=== PATIENT | male | born 1940 | race Caucasian/White ===

== ENCOUNTER 2020-10-20 09:21 | Outpatient (REF) | payer MEDICARE, SELFPAY ==
--- NOTE | 2020-10-20 09:24 | EMG_ITS ---
Right median and ulnar motor and sensory studies were performed. Right radial sensory studies were performed and paraspinal muscles were tested. IMPRESSION: 1. Dwug-[id number] right median neuropathy across carpal tunnel. 2. Bsim-hn-krytsgxt right ulnar neuropathy across cubital tunnel. 3. Chronic right multilevel cervical radiculopathy. MD DARLEEN Goff/SELENE / [id number]
== END 2020-10-20 09:22 | disposition home or self-care (01) ==
LOC: HO.NEURO 09:21
PROVIDERS: PCP Internal Medicine; Visit Provider Internal Medicine
DX: G56.01 Carpal tunnel syndrome, right upper limb (principal)
CPT/HCPCS: 95886; 95909

== ENCOUNTER → 2020-12-14 07:43 | Outpatient (BNVA) | payer MEDICARE, SELFPAY | PROVIDERS: Visit Provider Orthopaedic Surgery | DX: G56.01 Carpal tunnel syndrome, right upper limb (principal) | CPT/HCPCS: 99202 ==

== ENCOUNTER 2021-03-23 10:22 | Outpatient (REF) | payer MEDICARE, SELFPAY ==
[2021-03-23 11:08] LABS: Hematocrit 43.4 % (42.0-52.0); Hemoglobin 14.1 g/dl (14.0-18.0); Mean Corpuscular HGB Conc 32.5 g/dl (31.0-36.0); Mean Corpuscular Hemoglobin 29.9 pg (27.0-33.0); Mean Corpuscular Volume 92.1 fL (80.0-98.0); Mean Platelet Volume 9.7 fL (9.4-12.4); Platelet Count 326 X10*3/uL (160-400); Red Blood Count 4.71 X10*6/uL (4.60-5.80); Red Cell Distribution Width 13.2 % (11.0-16.0); White Blood Count 8.4 X10*3/uL (4.8-10.8)
[2021-03-23 11:41] LABS: Alanine Aminotransferase 15 U/L (0-40); Albumin Level 4.6 g/dL (3.5-5.0); Alkaline Phosphatase 82 U/L (39-117); Anion Gap 12 (12-20); Aspartate Amino Transferase 18 U/L (5-37); Bilirubin Total 2.9 mg/dL (0.0-1.0); Blood Urea Nitrogen 14 mg/dL (9-16); Calcium 9.7 mg/dL (8.4-10.2); Carbon Dioxide 27 mmol/L (22-29); Chloride 108 mmol/L (96-108); Cholesterol 174 mg/dL; Estimated Glomerular Filt Rate > 60; Glucose Fasting 91 mg/dL (60-99); HDL Cholesterol 44 mg/dL; LDL Cholesterol Calculated 99 mg/dl; Sodium 142 mmol/L (135-145); Total Protein 7.5 g/dL (6.5-8.0); Triglycerides 156 mg/dL
== END 2021-03-23 10:23 | disposition home or self-care (01) ==
LOC: HO.HMGCLDS 10:22
PROVIDERS: PCP Internal Medicine; Visit Provider Internal Medicine
DX: E78.5 Hyperlipidemia, unspecified (principal); I48.91 Unspecified atrial fibrillation
CPT/HCPCS: 36415; 80053; 80061; 85027

== ENCOUNTER → 2021-08-02 12:03 | Outpatient (RCR) | payer MEDICARE, SELFPAY ==
--- NOTE | 2020-01-07 15:45 | MHC.PT.EP ---
[facility] [place] Office [place] Office [place] Office [address] Dc Real [address] [phone] F: [phone] F: [phone] F: [phone] F: [phone] Physical Therapy Plan of Care Date of Evaluation: 01/07/20 Date of Surgery: Diagnosis: B sciatica. Assessment: Pt is a 79 y/o German speaking male referred to PT for eval and treat of B sciatica. His functional limitations include decreased tolerance for lifting and squatting activities, as well as getting OOB and turning in bed, initiating ambulation, performing transfers and transitional movements including standing up from sitting secondary to decreased trunk ROM, increased LE and lumbar tissue tension, decreased core and LE strength, decreased posture and gait abnormality. Pt is deemed an appropriate candidate to receive skilled PT services to address his physical impairments to improve his functional ability. Frequency and Duration: The patient will be seen 2x/wk x 4 weeks. Short Term Goals: In 1 week: initiate HEP with evidence of compliance. In 3 weeks: Pt will report > 50 % reduction in LE Sx severity and occurrence. Clinical Field Specialist Goals: In 4 weeks: I with HEP. In 4 weeks: Pt will report no pain with sit<> stand transfers. in 4 weeks: Pt's subjective LEFS questionnaire will improve to > 46/80, initial 38/80. Treatment Plan: Modalities to reduce pain, spasms and effusion. Manual therapy to restore motion and function. Therapeutic exercise to improve strength and flexibility. Neuromuscular re-education for posture and balance. Therapeutic activities to return to functional activities of daily living. Please sign and return to therapist. Thank you for your referral.
--- NOTE | 2020-02-22 13:27 | MHC.PT.DC ---
[facility] [place] [facility] [place] Office [place] Office [address] Dc Real [address] [phone] F: [phone] F: [phone] F: [phone] F: [phone] Physical Therapy Discharge Report Diagnosis: B sciatica. Date of Surgery: NA Date of Evaluation: 01/07/20 Date of Discharge: 02/22/20 Treatments to Date: 13 Cancellations to Date: 0 No Shows to Date: 0 Discharge Status: Achieved Goals Improved Function Independent with HEP Discharge Summary: Dale has been an active participant in his therapy in the clinic with fair home program compliance. He has met his therapeutic goals, is I with a home program and is in agreement with Dc at this time. Electronically signed by: Kemar Zamudio PT. Please sign and return to therapist. Thank you for your referral.
== END | disposition home or self-care (01) ==
LOC: HO.PTCHIC 01-07 12:51
PROVIDERS: PCP Internal Medicine; Visit Provider Internal Medicine
DX: M54.31 Sciatica, right side (principal); M54.32 Sciatica, left side
CPT/HCPCS: 97014; 97110; 97140; 97161

== ENCOUNTER 2022-03-13 09:24 | Outpatient (REF) | payer MEDICARE, SELFPAY ==
[2022-03-13 11:28] LABS: MANUAL DIFF FLAG NO
[2022-03-13 11:37] LABS: Basophils Absolute Auto 0.1 X10*3/uL (0.0-0.2); Eosinophils Absolute Auto 0.1 X10*3/uL (0.0-0.4); Eosinophils Percent Auto 1.9 % (0-4); Hematocrit 40.5 % (42.0-52.0); Hemoglobin 13.1 g/dl (14.0-18.0); Imm Gran Abs Auto 0.02 X10*3/uL (0.00-0.03); Imm Gran Pct Auto 0.3 % (0.0-0.4); Lymphocytes Absolute Auto 2.4 X10*3/uL (1.2-4.9); Lymphocytes Percent Auto 40.1 % (20-40); Mean Corpuscular HGB Conc 32.3 g/dl (31.0-36.0); Mean Corpuscular Hemoglobin 29.7 pg (27.0-33.0); Mean Corpuscular Volume 91.8 fL (80.0-98.0); Monocytes Absolute Auto 0.5 X10*3/uL (0.1-1.2); Monocytes Percent Auto 8.1 % (2-11); Neutrophils Absolute Auto 2.9 x10*3/uL (2.0-8.3); Neutrophils Percent Auto 48.6 % (45-73); Platelet Count 310 X10*3/uL (160-400); Red Blood Count 4.41 X10*6/uL (4.60-5.80); Red Cell Distribution Width 12.9 % (11.0-16.0); White Blood Count 5.9 X10*3/uL (4.8-10.8)
[2022-03-13 13:21] LABS: Digoxin < 0.2 ng/mL (0.8-2.0)
[2022-03-13 13:56] LABS: Alanine Aminotransferase 12 U/L (0-40); Albumin Level 4.4 g/dL (3.5-5.0); Alkaline Phosphatase 80 U/L (39-117); Anion Gap 12 (12-20); Aspartate Amino Transferase 20 U/L (5-37); Bilirubin Total 1.8 mg/dL (0.0-1.0); Blood Urea Nitrogen 14 mg/dL (9-16); Calcium 9.1 mg/dL (8.4-10.2); Carbon Dioxide 24 mmol/L (22-29); Chloride 113 mmol/L (96-108); Cholesterol 155 mg/dL; Estimated Glomerular Filt Rate > 60; Glucose Fasting 89 mg/dL (60-99); HDL Cholesterol 41 mg/dL; LDL Cholesterol Calculated 92 mg/dl; Potassium 4.1 mmol/L (3.3-5.1); Sodium 145 mmol/L (135-145); Total Protein 6.7 g/dL (6.5-8.0); Triglycerides 114 mg/dL
== END 2022-03-13 09:25 | disposition home or self-care (01) ==
LOC: HO.HMGCLDS 09:24
PROVIDERS: PCP Internal Medicine; Visit Provider Internal Medicine
DX: E78.5 Hyperlipidemia, unspecified (principal); I48.91 Unspecified atrial fibrillation
CPT/HCPCS: 36415; 80053; 80061; 80162; 85025

== ENCOUNTER → 2022-05-04 14:19 | Outpatient (REF) | payer MEDICARE, SELFPAY ==
--- NOTE | 2022-05-04 14:26 | HM_ITS ---
Conclusion: 1. Patient was monitored for total period of 1 day 2. Baseline was atrial fibrillation with average heart of 67 beats per minute with good rate control 3. No significant pauses greater than 3 seconds noted 4. Total of 248 PVCs accounting for 0.25% total beats account for occasional PVCs 5. One 3 beat nati of wide complex suggestive nonsustained VT at 129 beats per minute 6. No patient reported symptoms MTDD
--- NOTE | 2022-05-04 14:26 | CA_ITS ---
Transthoracic Echocardiogram Patient (Last, First, Middle): Dale Wiley, Gender: Male Date of : 1940 Age: 82 Procedure Date: 05/04/2022 Procedure Type: Transthoracic Echocardiogram Location: OP Height: 172.72 cm Weight: 102.06 kg BSA: 2.15 m2 Heart Rate: 75 bpm BP: 130 / 80 mmHg Stick Inserter: ERLIN Barton MD: Darleen Weaver MD Golf Club Manager: Grady Khan MD Symptoms: I48.91 - Unspecified atrial fibrillation Study Quality: Technically Difficult ECG Rhythm: Atrial Fibrillation Conclusions: - 1. Normal LV systolic function 2. At least moderate biatrial enlargement 3. Trivial aortic regurgitation 4. Normal RV systolic pressure 5. No gross pericardial effusion Findings Left Ventricle Normal left ventricular size and systolic function. There is mildly increased left ventricular wall thickness. The visually estimated ejection fraction is between 60-65%. Elevated left ventricular end diastolic pressure. E/E prime ratio is <8, consistent with normal filling pressures. Right Ventricle Normal right ventricular cavity size and systolic function. Atria Moderate biatrial enlargement. There is no evidence of interatrial shunt. Aortic Valve There is mild calcification of the aortic valve. There is no aortic valve stenosis. There is trace (trivial) aortic valve regurgitation. Mitral Valve There is mild anterior and posterior mitral leaflet thickening. There is trace mitral valve regurgitation. There is no mitral valve stenosis. Pulmonic Valve The pulmonic valve was not well visualized. Tricuspid Valve Likely normal tricuspid valve structure and function. Tricuspid regurgitation envelope is inadequate for calculation of right ventricular systolic pressure. Normal right atrial pressure. Great Vessels The pulmonary artery was not well visualized. There is no dilatation of the ascending aorta. Venous The inferior vena cava is normal in size and collapses greater than 50% with inspiration. Pericardium/Pleural There is no evidence of pericardial effusion. Prior Study Comparison No prior study available for comparison. Measurements 2D Linear Measurements IVSd: 1.28 0.6-0.9/0.6-1.0 cm LVIDd: 4.28 3.9-5.3/4.2-5.9 cm LVIDd Index: 1.99 2.4-3.2/2.2-3.1 cm/m2 LVIDs: 2.77 2.0-3.6 cm LVPWd: 1.16 0.7-1.1 cm LA Diam: 4.80 2.7-3.8/3.0-4.0 cm LAIDs Index: 2.23 1.5-2.3 cm/m2 LV Mass: 234.06 67-162/88-224 g LV Mass Index: 108.87 43-95/49-115 g/m2 LVOT Diam: 2.30 3.0+(-)1.3 cm 2D Systolic Function EF 4C: 57.80 >55% EF 2C: 68.30 >55% EF BiP: 63.40 >55% Mitral Valve MV Pk E: 0.83 MV PK A: 0.49 MV Decel Time: 190.00 E/A: 1.70 E'Lateral: 12.90 E'Medial: 12.70 E/E' Med: 6.50 E/E' Lat: 6.40 PHT: 56.00 MVA PHT: 3.93 Decel Nelson: 4.37 Aortic Valve AoV Pk Omar: 1.15 AoV Mn Omar: 0.79 AoV VTI: 0.22 AoV Pk Grad: 5.00 Aov Mn Grad: 3.00 ROMMEL Cont.VTI: 3.34 LVOT LVOT Pk Omar: 0.93 LVOT Mn Omar: 0.63 LVOT VTI: 0.17 LVOT Pk Grad: 3.00 LVOT Mn Grad: 2.00 LVOT Diam: 2.30 LVOT Area: 4.15 Diastolic Function MV Pk E: 0.83 MV Pk A: 0.49 E/A: 1.70 E'Medial: 12.70 E/E' Med: 6.50 E' Laterial: 12.90 E/E' Lat: 6.40 Right Ventricle TAPSE (mm): 21.40 TVS' Omar: 11.70 Tricuspid Valve TR Pk Omar: 2.58 TR Pk Grad: 27.00 Great Vessels Aorta Sinus of Valsalva: 3.40 2.0-3.5 cm Ao Asc: 3.50 2.1-3.4 cm Pulmonary Valve PV Pk Omar: 0.91 Peak PV Grad: 3.00 Updated in Other Vendor System with Status of Final Grady Khan MD electronically signed on 05/05/2022 2:55:25 PM with status of Final
== END ==
LOC: HO.CARD 14:19
PROVIDERS: PCP Internal Medicine; Visit Provider Internal Medicine
DX: I48.91 Unspecified atrial fibrillation (principal)
CPT/HCPCS: 93225; 93306

== ENCOUNTER → 2022-05-24 08:23 | Outpatient (BNVA) | payer MEDICARE, SELFPAY | PROVIDERS: PCP Internal Medicine; Referring Provider Internal Medicine; Visit Provider Internal Medicine | DX: I48.19 Other persistent atrial fibrillation (principal) | CPT/HCPCS: 93005; 99202 ==

== ENCOUNTER 2022-09-14 10:50 | Outpatient (REF) | payer MEDICARE, SELFPAY ==
[2022-09-14 13:46] LABS: MANUAL DIFF FLAG NO
[2022-09-14 13:53] LABS: Basophils Absolute Auto 0.1 X10*3/uL (0.0-0.2); Basophils Percent Auto 0.9 % (0-2); Eosinophils Absolute Auto 0.1 X10*3/uL (0.0-0.4); Eosinophils Percent Auto 1.6 % (0-4); Hematocrit 41.9 % (42.0-52.0); Hemoglobin 13.6 g/dl (14.0-18.0); Imm Gran Abs Auto 0.02 X10*3/uL (0.00-0.03); Imm Gran Pct Auto 0.3 % (0.0-0.4); Lymphocytes Absolute Auto 2.6 X10*3/uL (1.2-4.9); Lymphocytes Percent Auto 38.4 % (20-40); Mean Corpuscular HGB Conc 32.5 g/dl (31.0-36.0); Mean Corpuscular Hemoglobin 29.8 pg (27.0-33.0); Mean Corpuscular Volume 91.9 fL (80.0-98.0); Mean Platelet Volume 10.4 fL (9.4-12.4); Monocytes Absolute Auto 0.7 X10*3/uL (0.1-1.2); Neutrophils Absolute Auto 3.3 x10*3/uL (2.0-8.3); Neutrophils Percent Auto 48.8 % (45-73); Platelet Count 302 X10*3/uL (160-400); Red Blood Count 4.56 X10*6/uL (4.60-5.80); Red Cell Distribution Width 13.2 % (11.0-16.0); White Blood Count 6.7 X10*3/uL (4.8-10.8)
[2022-09-14 14:29] LABS: Alanine Aminotransferase 16 U/L (0-40); Albumin Level 4.3 g/dL (3.5-5.0); Alkaline Phosphatase 77 U/L (39-117); Anion Gap 11 (12-20); Aspartate Amino Transferase 20 U/L (5-37); Bilirubin Total 2.1 mg/dL (0.0-1.0); Blood Urea Nitrogen 16 mg/dL (9-16); Calcium 10.1 mg/dL (8.4-10.2); Carbon Dioxide 26 mmol/L (22-29); Chloride 112 mmol/L (96-108); Estimated Glomerular Filt Rate > 60; Glucose Random 94 mg/dL (60-115); Iron 100 mcg/dL (45-160); Percent Iron Saturation 37 % (15-50); Potassium 4.4 mmol/L (3.3-5.1); Sodium 145 mmol/L (135-145); Total Iron Binding Capacity 271 mcg/dL (228-428); Total Protein 7.1 g/dL (6.5-8.0); Unsaturated Iron Binding 171 ug/dL
[2022-09-14 14:58] LABS: Folate 13.1 ng/mL (> or = 4.0); Vitamin B12 272 pg/mL (200-900)
== END 2022-09-14 10:51 | disposition home or self-care (01) ==
LOC: HO.HMGCLDS 10:50
PROVIDERS: PCP Internal Medicine; Visit Provider Internal Medicine
DX: I48.19 Other persistent atrial fibrillation (principal); D64.9 Anemia, unspecified; E78.5 Hyperlipidemia, unspecified
CPT/HCPCS: 36415; 80053; 82607; 82746; 83540; 85025

== ENCOUNTER 2022-12-10 09:01 | Outpatient (AMB) | payer MEDICARE, SELFPAY ==
--- NOTE | 2022-12-10 09:25 | MHC.OFFVIS ---
Intake Vital Signs 12/10/22 09:26 Height 5 ft 10 in Weight 231 lb 7.766 oz BMI 33.2 BP 110/80 Blood Pressure Location Lt brachial Position Sitting Pulse 92 Intake Visit Reasons: 6 mth fup Intake Note: 6 month follow up Table Saw Operator Required: Yes Table Saw Operator Language: Bangladeshi Table Saw Operator Name: Linda [id number] Accompanied by: Self / Same As Patient Allergies No Known Allergies Allergy (Verified 12/10/22 09:28) Medication List - Last Reconciled 12/10/22 by Angel Vilchis MD atorvastatin 20 mg PO DAILY dabigatran etexilate 150 mg PO BID digoxin 125 mcg PO DAILY HPI HPI Comments History of Present Illness Details Dale returns for follow-up. He used to go to Cardiology in [place] but then switched over to our care due to some insurance issues. Polyp speaking only. Discussed using educational sign language interpreter. Overall, he is doing okay. No specific concerns like angina or shortness of breath or in fact anything cardiac sounding. No previous history of coronary disease myocardial infarction. 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 Mother No problems noted. Social History Housing: House Alcohol intake: never Patient Tobacco Use Status: Never used Tobacco e-Cigarette/Vaping Use: Never Used Current occupational status: retired Current occupation: rt hand Cognitive needs: No Hearing needs: No Vision needs: No Review of Systems Const Denies weakness ENT Denies dizziness Card Denies chest pain, Denies chest pain with activity, Denies syncope, Denies rapid heart rate, Denies pedal edema, Denies edema, Denies leg edema, Denies lightheadedness, Denies palpitations, Denies dyspnea, Denies dyspnea on exertion and Denies orthopnea Resp Denies cough, Denies dyspnea and Denies dyspnea on exertion GI Denies hematochezia and Denies change in stool character Musc Denies abnormal gait, Denies muscle cramps, Denies muscle weakness, Denies numbness, Denies radiating pain into limb and Denies tingling Neuro Denies abnormal gait, Denies dizziness, Denies syncope, Denies numbness, Denies tingling and Denies weakness Endo Denies palpitations Physical Exam Vital Signs: Last Vital Signs Pulse 92 12/10/22 09:26 BP 110/80 12/10/22 09:26 BMI result Body Mass Index 33.2 Const General: comfortable and no acute distress Orientation/consciousness: patient oriented x3 HEENT Other: Unremarkable Head: Yes normal to inspection Neck Neck: Yes normal visual inspection Chest Chest palpation & inspection: normal inspection of the chest Resp Auscultation: clear to auscultation bilaterally Cardio Palpation: normal PMI Heart sounds: S1 normal heart sound present, S2 normal heart sound present, no gallops, no murmurs and no rubs GI Palpation (GI): Soft to palpation Back/Spine/Pelvis Other: unremarkable Skin General skin exam: no rashes or lesions noted Neuro General: patient oriented x3 Extrem General: Yes normal to inspection Psych Mental Status: mental status grossly normal Assessment & Plan Assessment & Plan (1) Persistent atrial fibrillation: Code(s): I48.19 - Other persistent atrial fibrillation Plan Cardiac studies reviewed. Echocardiogram with LVEF of 60-65%; no significant valvular issues. Moderate biatrial enlargement. Holter monitor shows underlying atrial fibrillation with an average rate of 67/Min. Rare PVCs. Overall, adequate rate control. Stress test done in [place] in 2014 reported to have normal perfusion. Overall, long-standing atrial fibrillation. He is maintained only on digoxin and it has been this way probably due to low blood pressure issues. No changes. Continue anticoagulation. Follow-up in 1 year. In the interim, to call with concerns. Discussed using Bangladeshi educational sign language interpreter. Medications: Changed From dabigatran etexilate 150 mg PO BID 180 caps 3RF I48.91 - Unspecified atrial fibrillation To dabigatran etexilate 150 mg PO BID I48.91 - Unspecified atrial fibrillation Coding Level of Care Code Est Pt Level 3 (16287) Diagnoses Persistent atrial fibrillation I48.19
[2022-12-10 09:26] VITALS: BP 110/80; PULSE 92; BMI 33.2
== END 2022-12-10 09:45 | disposition home or self-care (01) ==
PROVIDERS: PCP Internal Medicine; Referring Provider Internal Medicine; Visit Provider Internal Medicine
DX: I48.19 Other persistent atrial fibrillation (principal)
CPT/HCPCS: 99213

== ENCOUNTER → 2022-12-10 09:01 | Outpatient (BNVA) | payer MEDICARE, SELFPAY | PROVIDERS: PCP Internal Medicine; Referring Provider Internal Medicine; Visit Provider Internal Medicine | DX: I48.19 Other persistent atrial fibrillation (principal) | CPT/HCPCS: 99212 ==

== ENCOUNTER 2023-04-03 09:09 | Outpatient (REF) | payer MEDICARE, SELFPAY ==
[2023-04-03 11:28] LABS: MANUAL DIFF FLAG NO
[2023-04-03 11:47] LABS: Basophils Absolute Auto 0.1 X10*3/uL (0.0-0.2); Basophils Percent Auto 0.7 % (0-2); Eosinophils Absolute Auto 0.1 X10*3/uL (0.0-0.4); Eosinophils Percent Auto 1.9 % (0-4); Hematocrit 40.4 % (42.0-52.0); Hemoglobin 13.3 g/dl (14.0-18.0); Imm Gran Abs Auto 0.01 X10*3/uL (0.00-0.03); Imm Gran Pct Auto 0.1 % (0.0-0.4); Lymphocytes Absolute Auto 2.8 X10*3/uL (1.2-4.9); Lymphocytes Percent Auto 40.7 % (20-40); Mean Corpuscular HGB Conc 32.9 g/dl (31.0-36.0); Mean Corpuscular Hemoglobin 29.8 pg (27.0-33.0); Mean Corpuscular Volume 90.6 fL (80.0-98.0); Mean Platelet Volume 10.2 fL (9.4-12.4); Monocytes Absolute Auto 0.7 X10*3/uL (0.1-1.2); Monocytes Percent Auto 9.3 % (2-11); Neutrophils Absolute Auto 3.3 x10*3/uL (2.0-8.3); Neutrophils Percent Auto 47.3 % (45-73); Platelet Count 292 X10*3/uL (160-400); Red Blood Count 4.46 X10*6/uL (4.60-5.80); Red Cell Distribution Width 13.5 % (11.0-16.0)
[2023-04-03 12:08] LABS: Alanine Aminotransferase 14 U/L (0-40); Albumin Level 4.3 g/dL (3.5-5.0); Alkaline Phosphatase 76 U/L (39-117); Anion Gap 13 (12-20); Aspartate Amino Transferase 19 U/L (5-37); Bilirubin Total 1.6 mg/dL (0.0-1.0); Blood Urea Nitrogen 11 mg/dL (9-16); Calcium 9.2 mg/dL (8.4-10.2); Carbon Dioxide 23 mmol/L (22-29); Chloride 113 mmol/L (96-108); Cholesterol 139 mg/dL (<200); Estimated Glomerular Filt Rate > 60; Glucose Fasting 92 mg/dL (60-99); HDL Cholesterol 47 mg/dL (>40); LDL Cholesterol Calculated 70 mg/dL (<100); Potassium 4.2 mmol/L (3.3-5.1); Sodium 145 mmol/L (135-145); Triglycerides 112 mg/dL (<150)
== END 2023-04-03 09:10 | disposition home or self-care (01) ==
LOC: HO.HMGCLDS 09:09
PROVIDERS: PCP Internal Medicine; Visit Provider Internal Medicine
DX: D64.9 Anemia, unspecified (principal); I48.91 Unspecified atrial fibrillation
CPT/HCPCS: 36415; 80053; 80061; 85025

== ENCOUNTER 2023-04-04 11:07 | Outpatient (AMB) | payer MEDICARE, SELFPAY ==
[2023-04-04 11:13] VITALS: BP 114/74; PULSE 95; O2SAT 98; BMI 33.9
--- NOTE | 2023-04-04 11:13 | A.OFFPC_ITS ---
Vital Signs 04/04/23 11:13 Height 5 ft 10 in Weight 236 lb BMI 33.9 BP 114/74 Blood Pressure Location Rt brachial Position Sitting Pulse 95 Pulse Source Pulse Oximeter Pulse Oximetry (%) 98 Oxygen Delivery Method Room Air Intake Visit Reasons: 6 month Follow up A-Fib Intake Note: Pt is here today for 6 months follow up visit on Afib. Allergies No Known Allergies Allergy (Verified 04/04/23 11:31) Medication List - Last Reconciled 04/04/23 by Darleen Weaver MD atorvastatin 20 mg PO DAILY dabigatran etexilate 150 mg PO BID 90 days digoxin 125 mcg PO DAILY Tobacco use date assessed: 04/04/23 Fall risk assessment: No Falls in past year Last assessed Fall Risk: 04/04/23 Dental Screening Dental Screen Date: 04/04/23 Did you have a dental visit in the last 12 months?: Yes Did you have a dental problem in the last 6 months where you did not have access to dental care?: No Was dental information given to patient?: Patient has dentist HPI 6 month Follow up A-Fib HPI Details Patient presents for the follow-up of AFib and hyperlipidemia stable on current medications. Patient denies chest pain shortness for breath palpitations. 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 Mother No problems noted. Social History Housing: House Alcohol intake: never Patient Tobacco Use Status: Never used Tobacco e-Cigarette/Vaping Use: Never Used Current occupational status: retired Current occupation: rt hand Cognitive needs: No Hearing needs: No Vision needs: No Questionnaire PHQ-9 Over the last 2 weeks, how often have you been bothered by any of the following problems? 1. Little interest or pleasure in doing things: not at all 2. Feeling down, depressed, or hopeless: not at all 3. Trouble falling or staying asleep, or sleeping too much: not at all 4. Feeling tired or having little energy: not at all 5. Poor appetite or overeating: not at all 6. Feeling bad about yourself - or that you are a failure or have let yourself or your family down: not at all 7. Trouble concentrating on things, such as reading the newspaper or watching television: not at all 8. Moving or speaking so slowly that other people could have noticed. Or the opposite - being so fidgety or restless that you have been moving around a lot more than usual: not at all 9. Thoughts that you would be better off or of hurting yourself in some way: not at all Total score: 0 Depression Screening Interpretation: Negative Depression Screening Done: Yes Source: Developed by Drs. Daniel Paul, Kavya Macias, Justin Rocha and colleagues, with an educational gladis from [employer]. Thrive Questionnaire Date Thrive assessed: 04/04/23 I am a: Patient What is your living situation today?: I have a steady place to live Within the past 12 months, did the food you bought not last and you didn't have the money to get more?: Never true Within the past 12 months, did you worry whether your food would run out before you got money to buy more?: Never true Do you have trouble paying for medicines?: No Do you have trouble getting transportation to medical appointments?: No Do you have trouble paying your heating and electricity bill?: No Do you have trouble taking care of your child, family member or friend?: No Do you have trouble with day-to-day activities such as bathing, preparing meals, shopping, managing finances, etc.?: No Are you currently unemployed and looking for a job?: No Are you interested in more education?: No Please select the resources that you would like help with: None Currently or been in a relationship where the following occur: no concerns reported AUDIT C Alcohol Use Questionnaire (AUDIT-C) 1. How often do you have a drink containing alcohol?: Never 3. How often do you have six or more drinks on one occasion?: Never Total Score: 0 ANN-MARIE-7 AMB Questionnaire ANN-MARIE-7 Date ANN-MARIE - 7 assessed: 04/04/23 Feeling nervous, anxious, or on edge: 0 = Not at all Not being able to stop or control worryin = Not at all Worrying too much about different things: 0 = Not at all Trouble relaxin = Not at all Being so restless that it is hard to sit still: 0 = Not at all Becoming easily annoyed or irritable: 0 = Not at all Feeling afraid as if something awful might happen: 0 = Not at all Total ANN-MARIE-7 score (0-4 normal; 5-9 mild; 10-14 moderate; 15-21 severe): 0 Source: Developed by Drs. Daniel Paul, Kavya Macias, Justin Rocha and colleagues, with an educational gladis from [employer]. Review of Systems Const All systems reviewed & are unremarkable except as noted in HPI and below Reports no additional complaints Eyes Reports no additional complaints Card Reports no additional complaints Resp Reports no additional complaints GI Reports no additional complaints Physical exam (Primary Care) Vital Signs: Last Vital Signs Pulse 95 04/04/23 11:13 BP 114/74 04/04/23 11:13 Pulse Ox 98 04/04/23 11:13 Oxygen Delivery Method Room Air 04/04/23 11:13 BMI result Body Mass Index 33.9 Tobacco/Smoking Status: Tobacco use Status Tobacco use date assessed 04/04/23 04/04/23 11:33 Patient Tobacco Use Status Never used Tobacco 04/04/23 11:33 e-Cigarette/Vaping Use Never Used 04/04/23 11:13 PHQ-9: PHQ-9 Score PHQ-9: Total score 0 04/04/23 11:38 Depression Screening Interpretation: Negative Thrive Assessment: Date of Thrive Assessment Date Thrive assessed 04/04/23 04/04/23 11:38 Currently or been in a relationship where the following occur: no concerns reported Const General: no acute distress HENMT Face and sinus: Yes normal facial exam Neck Neck: Yes supple Resp Effort & Inspection: normal respiratory effort Auscultation: clear to auscultation bilaterally Cardio Rhythm: regular rhythm Heart sounds: S1 normal heart sound present and S2 normal heart sound present GI Inspection: Yes normal to inspection Palpation (GI): Soft to palpation Assessment and Plan Assessment & Plan (1) Persistent atrial fibrillation: Code(s): I48.19 - Other persistent atrial fibrillation Plan: Continue digoxin and Pradaxa follow-up with cardiology (2) Hyperlipidemia: Code(s): E78.5 - Hyperlipidemia, unspecified Plan: Continue statin Medications: Refilled dabigatran etexilate 150 mg PO BID 90 days 180 caps 3RF I48.91 - Unspecified atrial fibrillation digoxin 125 mcg PO DAILY 90 tabs 3RF atorvastatin 20 mg PO DAILY 90 tabs 3RF Coding Level of Care Code Est Pt Level 3 (10712) Diagnoses Persistent atrial fibrillation I48.19 Hyperlipidemia E78.5
== END 2023-04-04 12:08 | disposition home or self-care (01) ==
PROVIDERS: PCP Internal Medicine; Visit Provider Internal Medicine
DX: I48.19 Other persistent atrial fibrillation (principal); E78.5 Hyperlipidemia, unspecified
CPT/HCPCS: 99213

== ENCOUNTER 2023-10-01 09:44 | Outpatient (REF) | payer MEDICARE, SELFPAY ==
[2023-10-01 12:58] LABS: MANUAL DIFF FLAG NO
[2023-10-01 13:06] LABS: Basophils Absolute Auto 0.1 X10*3/uL (0.0-0.2); Basophils Percent Auto 0.7 % (0-2); Eosinophils Absolute Auto 0.1 X10*3/uL (0.0-0.4); Eosinophils Percent Auto 1.9 % (0-4); Hematocrit 41.2 % (42.0-52.0); Hemoglobin 13.5 g/dl (14.0-18.0); Imm Gran Abs Auto 0.01 X10*3/uL (0.00-0.03); Imm Gran Pct Auto 0.1 % (0.0-0.4); Lymphocytes Absolute Auto 2.7 X10*3/uL (1.2-4.9); Lymphocytes Percent Auto 38.9 % (20-40); Mean Corpuscular HGB Conc 32.8 g/dl (31.0-36.0); Mean Corpuscular Hemoglobin 29.9 pg (27.0-33.0); Mean Corpuscular Volume 91.4 fL (80.0-98.0); Mean Platelet Volume 10.2 fL (9.4-12.4); Monocytes Absolute Auto 0.6 X10*3/uL (0.1-1.2); Neutrophils Absolute Auto 3.5 x10*3/uL (2.0-8.3); Neutrophils Percent Auto 50.4 % (45-73); Platelet Count 292 X10*3/uL (160-400); Red Blood Count 4.51 X10*6/uL (4.60-5.80); Red Cell Distribution Width 13.5 % (11.0-16.0); White Blood Count 6.9 X10*3/uL (4.8-10.8)
[2023-10-01 13:22] LABS: Alanine Aminotransferase 14 U/L (0-40); Albumin Level 4.5 g/dL (3.5-5.0); Alkaline Phosphatase 83 U/L (39-117); Anion Gap 12 (12-20); Aspartate Amino Transferase 19 U/L (5-37); Blood Urea Nitrogen 15 mg/dL (9-16); Calcium 9.4 mg/dL (8.4-10.2); Carbon Dioxide 25 mmol/L (22-29); Chloride 110 mmol/L (96-108); Cholesterol 144 mg/dL (<200); Estimated Glomerular Filt Rate > 60; Glucose Fasting 92 mg/dL (60-99); HDL Cholesterol 44 mg/dL (>40); LDL Cholesterol Calculated 80 mg/dL (<100); Potassium 4.2 mmol/L (3.3-5.1); Sodium 143 mmol/L (135-145); Total Protein 7.1 g/dL (6.5-8.0); Triglycerides 104 mg/dL (<150)
[2023-10-01 13:32] LABS: Digoxin 0.6 ng/mL (0.8-2.0)
== END 2023-10-01 09:45 | disposition home or self-care (01) ==
LOC: HO.HMGCLDS 09:44
PROVIDERS: PCP Internal Medicine; Visit Provider Internal Medicine
DX: Z00.00 Encounter for general adult medical examination without abnormal findings (principal); E78.5 Hyperlipidemia, unspecified; I48.19 Other persistent atrial fibrillation
CPT/HCPCS: 36415; 80053; 80061; 80162; 85025

== ENCOUNTER 2023-10-03 10:04 | Outpatient (AMB) | payer MEDICARE, SELFPAY ==
[2023-10-03 10:05] VITALS: BP 118/84; PULSE 96; O2SAT 97; BMI 32.7
--- NOTE | 2023-10-03 10:05 | A.OFFPC_ITS ---
Vital Signs 10/03/23 10:05 Height 5 ft 10 in Weight 228 lb BMI 32.7 BP 118/84 Blood Pressure Location Rt brachial Position Sitting Pulse 96 Pulse Source Pulse Oximeter Pulse Oximetry (%) 97 Oxygen Delivery Method Room Air Intake Visit Reasons: Annual PE Intake Note: Pt is here today for a PE. Pt states that his lower legs and ankles are swelling. Allergies No Known Allergies Allergy (Verified 10/03/23 10:08) Medication List - Last Reconciled 10/03/23 by Darleen Weaver MD atorvastatin 20 mg PO DAILY dabigatran etexilate 150 mg PO BID 90 days digoxin 125 mcg PO DAILY furosemide (Lasix) 20 mg PO Q OTHER DAY Tobacco use date assessed: 10/03/23 Fall risk assessment: No Falls in past year Last assessed Fall Risk: 10/03/23 Dental Screening Dental Screen Date: 04/04/23 HPI Annual PE HPI Details Pt presents for PE. Pt reports lower extremities swelling worse at the end of a day, chronically for years by getting worse over last few months. Patient denies dyspnea on exertion but has not been physically active. He denies PND orthopnea chest pain or palpitations. [facility] Medical History Annual physical exam Carpal tunnel syndrome of right wrist Degenerative joint disease (DJD) of lumbar spine Hyperlipidemia Atrial fibrillation Surgical History No pertinent past surgical history Family History Father No problems noted. Mother No problems noted. Social History Housing: House Alcohol intake: never Patient Tobacco Use Status: Never used Tobacco e-Cigarette/Vaping Use: Never Used service: No Current occupational status: retired Current occupation: rt hand Cognitive needs: No Hearing needs: No Vision needs: No Questionnaire PHQ-9 Over the last 2 weeks, how often have you been bothered by any of the following problems? 1. Little interest or pleasure in doing things: not at all 2. Feeling down, depressed, or hopeless: not at all 3. Trouble falling or staying asleep, or sleeping too much: not at all 4. Feeling tired or having little energy: not at all 5. Poor appetite or overeating: not at all 6. Feeling bad about yourself - or that you are a failure or have let yourself or your family down: not at all 7. Trouble concentrating on things, such as reading the newspaper or watching television: not at all 8. Moving or speaking so slowly that other people could have noticed. Or the opposite - being so fidgety or restless that you have been moving around a lot more than usual: not at all 9. Thoughts that you would be better off or of hurting yourself in some way: not at all Total score: 0 Depression Screening Interpretation: Negative Depression Screening Done: Yes Source: Developed by Drs. Daniel Paul, Kavya Macias, Justin Rocha and colleagues, with an educational gladis from [employer]. Thrive Questionnaire Date Thrive assessed: 10/03/23 I am a: Patient What is your living situation today?: I have a steady place to live Within the past 12 months, did the food you bought not last and you didn't have the money to get more?: Never true Within the past 12 months, did you worry whether your food would run out before you got money to buy more?: Never true Do you have trouble paying for medicines?: No Do you have trouble getting transportation to medical appointments?: No Do you have trouble paying your heating and electricity bill?: No Do you have trouble taking care of your child, family member or friend?: No Do you have trouble with day-to-day activities such as bathing, preparing meals, shopping, managing finances, etc.?: No Are you currently unemployed and looking for a job?: No Are you interested in more education?: No Please select the resources that you would like help with: None THRIVE Score: 0 ANN-MARIE-7 AMB Questionnaire ANN-MARIE-7 Date ANN-MARIE - 7 assessed: 10/03/23 Feeling nervous, anxious, or on edge: 0 = Not at all Not being able to stop or control worryin = Not at all Worrying too much about different things: 0 = Not at all Trouble relaxin = Not at all Being so restless that it is hard to sit still: 0 = Not at all Becoming easily annoyed or irritable: 0 = Not at all Feeling afraid as if something awful might happen: 0 = Not at all Total ANN-MARIE-7 score (0-4 normal; 5-9 mild; 10-14 moderate; 15-21 severe): 0 Source: Developed by Drs. Daniel Paul, Kavya Macias, Justin Rocha and colleagues, with an educational gladis from [employer]. Review of Systems Const All systems reviewed & are unremarkable except as noted in HPI and below ENT Reports no additional complaints Card Reports no additional complaints Resp Reports no additional complaints GI Reports no additional complaints Reports no additional complaints Physical exam (Primary Care) Vital Signs: Last Vital Signs Pulse 96 10/03/23 10:05 BP 118/84 10/03/23 10:05 Pulse Ox 97 10/03/23 10:05 Oxygen Delivery Method Room Air 10/03/23 10:05 BMI result Body Mass Index 32.7 Tobacco/Smoking Status: Tobacco use Status Tobacco use date assessed 10/03/23 10/03/23 10:09 Patient Tobacco Use Status Never used Tobacco 10/03/23 10:09 e-Cigarette/Vaping Use Never Used 10/03/23 10:05 Depression Screening Interpretation: Negative Thrive Assessment: Date of Thrive Assessment Date Thrive assessed 04/04/23 10/03/23 10:05 Const General: no acute distress HENMT Head: Yes normal to inspection Mouth: Normal oral and palatal mucosa present Neck Neck: Yes supple Resp Effort & Inspection: normal respiratory effort Auscultation: clear to auscultation bilaterally Cardio Rhythm: regular rhythm Heart sounds: S1 normal heart sound present and S2 normal heart sound present GI Inspection: Yes normal to inspection Palpation (GI): Soft to palpation Percussion: Yes normal to percussion Auscultation: normal bowel sounds Extrem Other: 1+ pitting edema bilaterally Assessment and Plan Assessment & Plan (1) Atrial fibrillation: Comment: Follow-up with cardiology every 6 months, normal echocardiogram and Holter consistent with persistent AFib with well controlled heart rate 06/14 Code(s): I48.91 - Unspecified atrial fibrillation Plan: Continue digoxin and Pradaxa. Follow-up with Cardiology. (2) Hyperlipidemia: Code(s): E78.5 - Hyperlipidemia, unspecified Plan: Continue atorvastatin (3) Annual physical exam: Code(s): Z00.00 - Encounter for general adult medical examination without abnormal findings Plan: Well-balanced diet regular physical activity weight loss discussed with the patient (4) Edema: Code(s): R60.9 - Edema, unspecified Plan: Start furosemide 20 mg up to twice a week as needed. Patient was advised to elevate lower extremities (5) Overweight: Code(s): E66.3 - Overweight Plan: Weight loss discussed with the patient Orders: Orders Comprehensive [place]. Panel Fast 3 Months I48.19 - Other persistent atrial fibrillation, I48.91 - Unspecified atrial fibrillation, R60.9 - Edema, unspecified Medications: New furosemide (Lasix) 20 mg PO Q OTHER DAY 20 tabs 1RF Coding Level of Care Code Est Pt Prev Care >65y(56179) Diagnoses Atrial fibrillation I48.91 Hyperlipidemia E78.5 Annual physical exam Z00.00 Edema R60.9 Overweight E66.3
== END 2023-10-03 11:20 | disposition home or self-care (01) ==
LOC: HO.HMGC 10:04
PROVIDERS: PCP Internal Medicine; Visit Provider Internal Medicine
DX: I48.91 Unspecified atrial fibrillation (principal); E78.5 Hyperlipidemia, unspecified; Z00.00 Encounter for general adult medical examination without abnormal findings; R60.9 Edema, unspecified; E66.3 Overweight
CPT/HCPCS: 99397

== ENCOUNTER 2023-12-10 10:30 | Outpatient (AMB) | payer MEDICARE, SELFPAY ==
[2023-12-10 10:32] VITALS: BP 132/80; PULSE 80; BMI 32.4
--- NOTE | 2023-12-10 10:32 | A.OFFVIS_ITS ---
Vital Signs 12/10/23 10:32 Height 5 ft 10 in Weight 225 lb 12.054 oz BMI 32.4 BP 132/80 Blood Pressure Location Lt brachial Position Sitting Pulse 80 Intake Visit Reasons: 1 year follow up Medical Research Tech Required: Yes Medical Research Tech Services: Medical Research Tech Offered & Declined (Granddaughter will interpret) Medical Research Tech Name: Lakesha Accompanied by: Grand Child Allergies No Known Allergies Allergy (Verified 10/03/23 10:08) Medication List - Last Reconciled 12/10/23 by Angel Vilchis MD atorvastatin 20 mg PO DAILY dabigatran etexilate 150 mg PO BID 90 days digoxin 125 mcg PO DAILY HPI Comments Details: Dale returns for follow-up. He used to go to Cardiology in [place] but then switched over to our care due to some insurance issues. French speaking only. Discussed using granddaughter. Overall, no specific cardiac symptoms like angina or shortness of breath or palpitations. He seems to be getting along fine. [facility] Medical History Annual physical exam Carpal tunnel syndrome of right wrist Degenerative joint disease (DJD) of lumbar spine Hyperlipidemia Atrial fibrillation Surgical History No pertinent past surgical history Family History Father No problems noted. Mother No problems noted. Social History Housing: House Alcohol intake: never Patient Tobacco Use Status: Never used Tobacco e-Cigarette/Vaping Use: Never Used service: No Current occupational status: retired Current occupation: rt hand Cognitive needs: No Hearing needs: No Vision needs: No Review of Systems Const Denies chills, Denies fatigue, Denies fever(s), Denies weight gain and Denies weight loss ENT Denies dizziness Card Denies chest pain, Denies leg edema, Denies lightheadedness, Denies palpitations, Denies dyspnea on exertion, Denies orthopnea and Denies other Resp Denies cough and Denies dyspnea on exertion GI Denies hematochezia and Denies change in stool character Musc Denies abnormal gait, Denies muscle weakness, Denies numbness, Denies radiating pain into limb and Denies tingling Neuro Denies abnormal gait, Denies dizziness, Denies numbness and Denies tingling Endo Denies fatigue and Denies palpitations Physical Exam Vital Signs: Last Vital Signs Pulse 80 12/10/23 10:32 BP 132/80 12/10/23 10:32 BMI result Body Mass Index 32.4 Const General: comfortable and no acute distress Orientation/consciousness: patient oriented x3 HEENT Other: Unremarkable Head: Yes normal to inspection Neck Neck: Yes normal visual inspection Chest Chest palpation & inspection: normal inspection of the chest Resp Auscultation: clear to auscultation bilaterally Cardio Palpation: normal PMI Heart sounds: S1 normal heart sound present, S2 normal heart sound present, no gallops, no murmurs and no rubs GI Palpation (GI): Soft to palpation Back/Spine/Pelvis Other: unremarkable Skin General skin exam: no rashes or lesions noted Neuro General: patient oriented x3 Extrem General: Yes normal to inspection Psych Mental Status: mental status grossly normal Office Procedures EKG Details: EKG with underlying atrial fibrillation at a rate of 80/Min; nonspecific ST-T changes that could be digoxin effects. No significant change compared to prior. [id number], Complete Assessment & Plan Assessment & Plan (1) Persistent atrial fibrillation: Code(s): I48.19 - Other persistent atrial fibrillation Category: Medical Plan Cardiac studies reviewed. Echocardiogram with LVEF of 60-65%; no significant valvular issues. Moderate biatrial enlargement. Holter monitor shows underlying atrial fibrillation with an average rate of 67/Min. Rare PVCs. Overall, adequate rate control. Stress test done in [place] in 2015 reported to have normal perfusion. Clinically, no cardiac symptoms. Overall, continue digoxin as previously on. Levels are acceptable. Normal renal function. Suspected has been this way due to low blood pressure issues. Anticoagulation without changes. Follow-up in 1 year. In the interim, call with concerns. Discussed with granddaughter. Coding Level of Care Code Est Pt Level 3 (61545) Diagnoses Persistent atrial fibrillation I48.19 CPT Codes EKG - CPT: 12989-[id number], Complete ([id number])
== END 2023-12-10 10:56 | disposition home or self-care (01) ==
PROVIDERS: PCP Internal Medicine; Visit Provider Internal Medicine
DX: I48.19 Other persistent atrial fibrillation (principal)
CPT/HCPCS: 93010; 99213

== ENCOUNTER → 2023-12-10 10:30 | Outpatient (BNVA) | payer MEDICARE, SELFPAY | PROVIDERS: PCP Internal Medicine; Visit Provider Internal Medicine | DX: I48.19 Other persistent atrial fibrillation (principal) | CPT/HCPCS: 93005; 99212 ==

== ENCOUNTER 2024-01-06 11:30 | Outpatient (AMB) | payer MEDICARE, SELFPAY ==
[2024-01-06 11:36] VITALS: BP 128/80; PULSE 76; O2SAT 97; BMI 32.4
--- NOTE | 2024-01-06 11:36 | A.OFFPC_ITS ---
Vital Signs 01/06/24 11:36 Height 5 ft 10 in Weight 226 lb BMI 32.4 BP 128/80 Blood Pressure Location Lt brachial Position Sitting Pulse 76 Pulse Source Pulse Oximeter Pulse Oximetry (%) 97 Oxygen Delivery Method Room Air Intake Visit Reasons: Labs f/u Intake Note: Pt is here today for a follow up visit. Pt states that he is fasting today. Allergies No Known Allergies Allergy (Verified 01/06/24 11:39) Medication List - Last Reconciled 01/06/24 by Darleen Weaver MD atorvastatin 20 mg PO DAILY dabigatran etexilate 150 mg PO BID 90 days digoxin 125 mcg PO DAILY Tobacco use date assessed: 01/06/24 Fall risk assessment: No Falls in past year Last assessed Fall Risk: 01/06/24 Dental Screening Dental Screen Date: 01/06/24 Did you have a dental visit in the last 12 months?: Yes Did you have a dental problem in the last 6 months where you did not have access to dental care?: No Was dental information given to patient?: Patient has dentist HPI Labs f/u HPI Details Patient presents for the follow-up of hyperlipidemia AFib rate controlled on digoxin and anticoagulated. [facility] Medical History Annual physical exam Carpal tunnel syndrome of right wrist Degenerative joint disease (DJD) of lumbar spine Hyperlipidemia Atrial fibrillation Surgical History No pertinent past surgical history Family History Father No problems noted. Mother No problems noted. Social History Housing: House Alcohol intake: never Patient Tobacco Use Status: Never used Tobacco e-Cigarette/Vaping Use: Never Used service: No Current occupational status: retired Current occupation: rt hand Cognitive needs: No Hearing needs: No Vision needs: No Questionnaire Thrive Questionnaire Date Thrive assessed: 10/03/23 AUDIT C Alcohol Use Questionnaire (AUDIT-C) 1. How often do you have a drink containing alcohol?: Never 3. How often do you have six or more drinks on one occasion?: Never Total Score: 0 ANN-MARIE-7 AMB Questionnaire ANN-MARIE-7 Date ANN-MARIE - 7 assessed: 10/03/23 Source: Developed by Drs. Daniel Paul, Kavya Macias, Justin Rocha and colleagues, with an educational gladis from [employer]. Review of Systems Const All systems reviewed & are unremarkable except as noted in HPI and below Eyes Reports no additional complaints ENT Reports no additional complaints Card Reports no additional complaints Resp Reports no additional complaints GI Reports no additional complaints Reports no additional complaints Physical exam (Primary Care) Vital Signs: Last Vital Signs Pulse 76 01/06/24 11:36 BP 128/80 01/06/24 11:36 Pulse Ox 97 01/06/24 11:36 Oxygen Delivery Method Room Air 01/06/24 11:36 BMI result Body Mass Index 32.4 Tobacco/Smoking Status: Tobacco use Status Tobacco use date assessed 01/06/24 01/06/24 11:43 Patient Tobacco Use Status Never used Tobacco 01/06/24 11:43 e-Cigarette/Vaping Use Never Used 01/06/24 11:39 Thrive Assessment: Date of Thrive Assessment Date Thrive assessed 10/03/23 01/06/24 11:39 Const General: no acute distress HENMT Face and sinus: Yes normal facial exam Neck Neck: Yes supple Resp Effort & Inspection: normal respiratory effort Auscultation: clear to auscultation bilaterally Cardio Rhythm: abnormal rhythm irregularly irregular Heart sounds: S1 normal heart sound present and S2 normal heart sound present GI Inspection: Yes normal to inspection Auscultation: normal bowel sounds Extrem General: Yes no clubbing, cyanosis or edema Coding Level of Care Code Est Pt Level 4 (52928) Diagnoses Hyperlipidemia E78.5 Atrial fibrillation I48.91 Anemia D64.9 Assessment & Plan Assessment & Plan (1) Hyperlipidemia: Code(s): E78.5 - Hyperlipidemia, unspecified Category: Medical Plan: Continue statin (2) Atrial fibrillation: Comment: Follow-up with cardiology every 6 months, normal echocardiogram and Holter consistent with persistent AFib with well controlled heart rate 06/14 Code(s): I48.91 - Unspecified atrial fibrillation Category: Medical Plan: Controlled on digoxin, will discuss changing Pradaxa to Eliquis because of the lower risk of GI bleeding on Eliquis (3) Anemia: Comment: Borderline low H/H normal iron and B12 level 07/16 Code(s): D64.9 - Anemia, unspecified Category: Medical Plan: Monitor CBC check iron count Orders: Orders Comprehensive [place]. Panel Fast 5 Months D64.9 - Anemia, unspecified, E78.5 - Hyperlipidemia, unspecified, I48.91 - Unspecified atrial fibrillation Lipid Panel 5 Months D64.9 - Anemia, unspecified, E78.5 - Hyperlipidemia, unspecified, I48.91 - Unspecified atrial fibrillation Complete Blood Count Auto Diff 5 Months D64.9 - Anemia, unspecified, E78.5 - Hyperlipidemia, unspecified, I48.91 - Unspecified atrial fibrillation IRON PROFILE 5 Months D64.9 - Anemia, unspecified, E78.5 - Hyperlipidemia, unspecified, I48.91 - Unspecified atrial fibrillation
== END 2024-01-06 12:08 | disposition home or self-care (01) ==
PROVIDERS: PCP Internal Medicine; Visit Provider Internal Medicine
DX: E78.5 Hyperlipidemia, unspecified (principal); I48.91 Unspecified atrial fibrillation; D64.9 Anemia, unspecified

== ENCOUNTER → 2024-01-06 11:30 | Outpatient (BNVA) | payer MEDICARE, SELFPAY | PROVIDERS: PCP Internal Medicine; Visit Provider Internal Medicine | DX: E78.5 Hyperlipidemia, unspecified (principal); D64.9 Anemia, unspecified; I48.91 Unspecified atrial fibrillation | CPT/HCPCS: 99212 ==

== ENCOUNTER 2024-06-08 10:55 | Outpatient (AMB) | payer MEDICARE, SELFPAY ==
--- NOTE | 2024-06-08 11:03 | MHC.PC.OV ---
Vital Signs 06/08/24 11:04 Height 5 ft 10 in Weight 235 lb BMI 33.7 BP 110/70 Blood Pressure Location Lt brachial Position Sitting Respiration 20 Pulse 84 Pulse Source Pulse Oximeter Temp 98.6 F Temp Source Oral Pulse Oximetry (%) 97 Oxygen Delivery Method Room Air Intake Visit Reasons: 5 months f/up Intake Note: Pt is here today for 5 months follow up visit. Allergies No Known Allergies Allergy (Verified 06/08/24 11:08) Medication List - Last Reconciled 06/08/24 by Darleen Weaver MD atorvastatin 20 mg PO DAILY dabigatran etexilate 150 mg PO BID digoxin 125 mcg PO DAILY Tobacco use date assessed: 06/08/24 Fall risk assessment: No Falls in past year Last assessed Fall Risk: 06/08/24 Dental Screening Dental Screen Date: 06/08/24 Did you have a dental visit in the last 12 months?: No Did you have a dental problem in the last 6 months where you did not have access to dental care?: No Was dental information given to patient?: Patient declined HPI 5 months f/up HPI Details Patient presents for the follow-up. His insurance stopped covering Eliquis and will switch over to Pradaxa. AFib rate control is controlled digoxin. Patient has been taking atorvastatin for hyperlipidemia. He denies chest pain shortness of breath palpitations he has been walking regularly with a dog. [facility] Medical History (Updated 06/08/24 @ 12:12 by Darleen Weaver MD) Anemia Annual physical exam Carpal tunnel syndrome of right wrist Degenerative joint disease (DJD) of lumbar spine Hyperlipidemia Atrial fibrillation Surgical History No pertinent past surgical history Family History Father No problems noted. Mother No problems noted. Social History Housing: House Alcohol intake: never Patient Tobacco Use Status: Never used Tobacco e-Cigarette/Vaping Use: Never Used service: No Current occupational status: retired Current occupation: rt hand Cognitive needs: No Hearing needs: No Vision needs: No Questionnaire PHQ-9 Over the last 2 weeks, how often have you been bothered by any of the following problems? 1. Little interest or pleasure in doing things: not at all 2. Feeling down, depressed, or hopeless: not at all 3. Trouble falling or staying asleep, or sleeping too much: not at all 4. Feeling tired or having little energy: not at all 5. Poor appetite or overeating: not at all 6. Feeling bad about yourself - or that you are a failure or have let yourself or your family down: not at all 7. Trouble concentrating on things, such as reading the newspaper or watching television: not at all 8. Moving or speaking so slowly that other people could have noticed. Or the opposite - being so fidgety or restless that you have been moving around a lot more than usual: not at all 9. Thoughts that you would be better off or of hurting yourself in some way: not at all Total score: 0 Depression Screening Interpretation: Negative Depression Screening Done: Yes 51945 - PHQ-9 Billing: Yes Source: Developed by Drs. Daniel Paul, Kavya Macias, Justin Rocha and colleagues, with an educational gladis from [employer]. Thrive Questionnaire Date Thrive assessed: 06/08/24 I am a: Patient What is your living situation today?: I have a steady place to live Within the past 12 months, did the food you bought not last and you didn't have the money to get more?: Never true Within the past 12 months, did you worry whether your food would run out before you got money to buy more?: Never true Do you have trouble paying for medicines?: No Do you have trouble getting transportation to medical appointments?: No Do you have trouble paying your heating and electricity bill?: No Do you have trouble taking care of your child, family member or friend?: No Do you have trouble with day-to-day activities such as bathing, preparing meals, shopping, managing finances, etc.?: No Are you currently unemployed and looking for a job?: No Are you interested in more education?: No THRIVE Score: 0 AUDIT C Alcohol Use Questionnaire (AUDIT-C) 1. How often do you have a drink containing alcohol?: Never 3. How often do you have six or more drinks on one occasion?: Never Total Score: 0 ANN-MARIE-7 AMB Questionnaire ANN-MARIE-7 Date ANN-MARIE - 7 assessed: 06/08/24 Feeling nervous, anxious, or on edge: 0 = Not at all Not being able to stop or control worryin = Not at all Worrying too much about different things: 0 = Not at all Trouble relaxin = Not at all Being so restless that it is hard to sit still: 0 = Not at all Becoming easily annoyed or irritable: 0 = Not at all Feeling afraid as if something awful might happen: 0 = Not at all Total ANN-MARIE-7 score (0-4 normal; 5-9 mild; 10-14 moderate; 15-21 severe): 0 Source: Developed by Drs. Daniel Paul, Kavya Macias, Justin Rocha and colleagues, with an educational gladis from [employer]. ANN-MARIE-7 Assessment Billing ANN-MARIE-7 Assessment Tool: ANN-MARIE-7 Assessment 85565 Review of Systems Const All systems reviewed & are unremarkable except as noted in HPI and below Eyes Reports no additional complaints ENT Reports no additional complaints Card Reports no additional complaints Resp Reports no additional complaints GI Reports no additional complaints Reports no additional complaints Physical exam (Primary Care) Vital Signs: Last Vital Signs Temp 98.6 F 06/08/24 11:04 Pulse 84 06/08/24 11:04 Resp 20 06/08/24 11:04 BP 110/70 06/08/24 11:04 Pulse Ox 97 06/08/24 11:04 Oxygen Delivery Method Room Air 06/08/24 11:04 BMI result Body Mass Index 33.7 Tobacco/Smoking Status: Tobacco use Status Tobacco use date assessed 06/08/24 06/08/24 11:10 Patient Tobacco Use Status Never used Tobacco 06/08/24 11:10 e-Cigarette/Vaping Use Never Used 06/08/24 11:04 PHQ-9: PHQ-9 Score PHQ-9: Total score 0 06/08/24 11:41 Depression Screening Interpretation: Negative Thrive Assessment: Date of Thrive Assessment Date Thrive assessed 06/08/24 06/08/24 11:10 Const General: no acute distress HENMT Face and sinus: Yes normal facial exam Eyes General: appearance normal, both eyes and all related structures Resp Effort & Inspection: normal respiratory effort Auscultation: clear to auscultation bilaterally Cardio Rhythm: abnormal rhythm irregularly irregular Heart sounds: S1 normal heart sound present and S2 normal heart sound present GI Inspection: Yes normal to inspection Palpation (GI): Soft to palpation Coding Level of Care Code Est Pt Level 4 (33452) Diagnoses Atrial fibrillation I48.91 Anemia D64.9 Hyperlipidemia E78.5 Additional Codes ANN-MARIE-7 Assessment Billing - ANN-MARIE-7 Assessment Tool: ANN-MARIE-7 Assessment 06417 ([id number]) PHQ-9 - 00984 - PHQ-9 Billing: Yes ([id number]) Assessment & Plan Assessment & Plan (1) Atrial fibrillation: Comment: Follow-up with cardiology every 6 months, normal echocardiogram and Holter consistent with persistent AFib with well controlled heart rate 06/14 Code(s): I48.91 - Unspecified atrial fibrillation Category: Medical Plan: Continue digoxin for rate control and anticoagulation with dabigatran. Follow-up with the Cardiology annually (2) Anemia: Comment: Borderline low H/H normal iron and B12 level 07/16 Code(s): D64.9 - Anemia, unspecified Category: Medical Plan: Monitor CBC check iron count (3) Hyperlipidemia: Code(s): E78.5 - Hyperlipidemia, unspecified Category: Medical Plan: Continue statin Orders: Orders Comprehensive Dustin. Panel Fast Today D64.9 - Anemia, unspecified, E78.5 - Hyperlipidemia, unspecified, I48.91 - Unspecified atrial fibrillation Complete Blood Count Auto Diff Today D64.9 - Anemia, unspecified, E78.5 - Hyperlipidemia, unspecified, I48.91 - Unspecified atrial fibrillation Lipid Panel Today D64.9 - Anemia, unspecified, E78.5 - Hyperlipidemia, unspecified, I48.91 - Unspecified atrial fibrillation Digoxin Today D64.9 - Anemia, unspecified, E78.5 - Hyperlipidemia, unspecified, I48.91 - Unspecified atrial fibrillation IRON PROFILE Today D64.9 - Anemia, unspecified, E78.5 - Hyperlipidemia, unspecified, I48.91 - Unspecified atrial fibrillation Vitamin B12 and Folate Today D64.9 - Anemia, unspecified, E78.5 - Hyperlipidemia, unspecified, I48.91 - Unspecified atrial fibrillation
[2024-06-08 11:04] VITALS: BP 110/70; PULSE 84; RESP 20; TEMP 37; O2SAT 97; BMI 33.7
--- OUTSIDE RECORDS SUMMARY | 2024-06-08 12:37 | XMS_ITS | Clinical Summary ---
Author Organization [facility] Address [address] [place] [address] Care Team Providers Care Metropolitan Editor Name Role Phone Darleen Weaver MD Primary Care Provider [phone] Allergies No known active allergies Medications Medication Sig Dispensed Refills Start Date End Date Status atorvastatin (LIPITOR) tablet 40 mg Take 1 tablet (40 mg total) by mouth daily. 30 tablet 11 03/29/2015 Active Additional Information Patient taking differently: 20 mgOral Daily, Reason: Other, Reported on 01/15/2019 dabigatran etexilate (PRADAXA) 150 MG capsu Take 1 capsule (150 mg total) by mouth 2 (two) times a day. 180 capsule 3 04/20/2019 Active digoxin (DIGOX) 125 MCG tablet Take 1 tablet (125 mcg total) by mouth daily. 90 tablet 3 06/09/2019 Active Hospital, Clinic, or Other Facility Administered Medication Ordered Dose Route Frequency Start Date End Date Status regadenoson (LEXISCAN) injection 0.4 mgIndications:Shortness of breath,Chronic atrial fibrillation (HCC),Pure hypercholesterolemia 0.4 mg IV Once 01/31/2015 Acti ve Active Problems Problem Noted Date Diagnosed Date Mild aortic regurgitation 07/10/2018 Chronic anticoagulation 06/17/2017 Aortic valve sclerosis 06/17/2017 Non-rheumatic mitral regurgitation 06/17/2017 Biatrial enlargement 06/17/2017 Non morbid obesity due to excess calories 2015 Obesity 08/15/2015 Hyperlipidemia 02/07/2015 Chronic atrial fibrillation 02/07/2015 Family History Medical History Relation Name Comments Cancer Father Cancer Mother Relation Name Status Comments Brother Alive Father Mother Sister Alive Social History Tobacco Use Types Packs/Day Years Used Date Smoking Tobacco: Former Cigarettes Q uit: 11/23/1999 Smokeless Tobacco: Never Alcohol Use Standard Drinks/Week Comments No 0 (1 standard drink = 0.6 oz pur e alcohol) Sex and Gender Information Value Date Recorded Sex Assigned at Not on file Gender Identity Not on file Sexual Orientation Not on file Last Filed Vital Signs Vital Sign Reading Time Taken Comments Blood Pressure 132/74 04/20/2019 1:06 PM EST Pulse 84 04/20/2019 1:06 PM EST Temperature - - Respiratory Rate - - Oxygen Saturation 98% 04/20/2019 1:06 PM EST Inhaled Oxygen Concentration - - Weight 105.7 kg (233 lb) 04/20/2019 1:06 PM EST Height 170.2 cm (5' 7 ) 04/20/2019 1:06 PM EST Body Mass Index 36.49 04/20/2019 1:06 PM EST Plan of Treatment Health Maintenance Due Date Last Done Comments COVID-19 Vaccine (#1) 1940 Pneumococcal Vaccine (1 of 2 - PCV) 1946 Depression Screening 1952 BMI Counseling 1958 Preventative Health Evaluation 1958 DTap / Tdap / Td (1 - Tdap) 1959 Shingrix-Zoster Vaccine (1 of 2) 1990 Fall Risk Assessment 2005 RSV Adult > 60+ Yrs or Pregn ant (1 - 1-dose 75+ series) 2015 Influenza Vaccine (#1) 2023 Hepatitis B Vaccines Aged Out No long er eligible based on patient's age to complete this topic RSV Ped < 20 months Aged Out No longe r eligible based on patient's age to complete this topic Care Teams Metropolitan Editor Relationship Specialty Start Date End Date Darleen Weaver MD [address] [place] [address] PCP - General Roustabout Crew Pusher 10/08/19
== END 2024-06-08 12:23 | disposition home or self-care (01) ==
PROVIDERS: PCP Internal Medicine; Visit Provider Internal Medicine
DX: I48.91 Unspecified atrial fibrillation (principal); D64.9 Anemia, unspecified; E78.5 Hyperlipidemia, unspecified

== ENCOUNTER 2024-06-08 10:55 | Outpatient (REF) | payer MEDICARE, SELFPAY ==
[2024-06-08 13:15] LABS: MANUAL DIFF FLAG NO
[2024-06-08 13:25] LABS: Basophils Absolute Auto 0.1 X10*3/uL (0.0-0.2); Basophils Percent Auto 0.8 % (0-2); Eosinophils Absolute Auto 0.1 X10*3/uL (0.0-0.4); Eosinophils Percent Auto 1.4 % (0-4); Imm Gran Abs Auto 0.02 X10*3/uL (0.00-0.03); Imm Gran Pct Auto 0.3 % (0.0-0.4); Lymphocytes Absolute Auto 2.5 X10*3/uL (1.2-4.9); Mean Corpuscular HGB Conc 33.3 g/dl (31.0-36.0); Mean Corpuscular Hemoglobin 30.3 pg (27.0-33.0); Mean Corpuscular Volume 90.9 fL (80.0-98.0); Monocytes Absolute Auto 0.7 X10*3/uL (0.1-1.2); Monocytes Percent Auto 9.2 % (2-11); Neutrophils Absolute Auto 3.8 x10*3/uL (2.0-8.3); Neutrophils Percent Auto 53.3 % (45-73); Platelet Count 308 X10*3/uL (160-400); Red Blood Count 4.29 X10*6/uL (4.60-5.80); Red Cell Distribution Width 13.3 % (11.0-16.0); White Blood Count 7.2 X10*3/uL (4.8-10.8)
[2024-06-08 14:16] LABS: Digoxin 0.5 ng/mL (0.8-2.0)
[2024-06-08 14:19] LABS: Alanine Aminotransferase 15 U/L (0-40); Albumin Level 4.3 g/dL (3.5-5.0); Alkaline Phosphatase 82 U/L (39-117); Anion Gap 10 (12-20); Aspartate Amino Transferase 22 U/L (5-37); Bilirubin Total 1.9 mg/dL (0.0-1.0); Blood Urea Nitrogen 12 mg/dL (9-16); Calcium 8.8 mg/dL (8.4-10.2); Carbon Dioxide 25 mmol/L (22-29); Chloride 114 mmol/L (96-108); Cholesterol 136 mg/dL (<200); Estimated Glomerular Filt Rate > 60; Glucose Fasting 88 mg/dL (60-99); HDL Cholesterol 43 mg/dL (>40); Iron 101 mcg/dL (45-160); LDL Cholesterol Calculated 69 mg/dL (<100); Percent Iron Saturation 41 % (15-50); Potassium 4.1 mmol/L (3.3-5.1); Sodium 145 mmol/L (135-145); Total Iron Binding Capacity 248 mcg/dL (228-428); Total Protein 7.1 g/dL (6.5-8.0); Triglycerides 124 mg/dL (<150); Unsaturated Iron Binding 147 ug/dL
--- OUTSIDE RECORDS SUMMARY | 2024-06-08 14:23 | XMS_ITS | Clinical Summary ---
Author Organization [facility] Address [address] [place] [address] Care Team Providers Care Review Trainer Name Role Phone Darleen Weaver MD Primary Care Provider [phone] Allergies No known active allergies Medications Medication [...] age to complete this topic Care Teams Review Trainer Relationship Specialty Start Date End Date Darleen Weaver MD [address] [place] [address] PCP - General Cushion Filler 10/08/19
[2024-06-08 14:35] LABS: Folate 12.5 ng/mL (> or = 4.0); Vitamin B12 239 pg/mL (200-900)
== END 2024-06-08 10:56 | disposition home or self-care (01) ==
LOC: HO.HMGCLDS 10:55
PROVIDERS: PCP Internal Medicine; Visit Provider Internal Medicine
DX: I48.91 Unspecified atrial fibrillation (principal); D64.9 Anemia, unspecified; E78.5 Hyperlipidemia, unspecified
CPT/HCPCS: 36415; 80053; 80061; 80162; 82607; 82746; 83540; 85025; 96127; 99212

== ENCOUNTER 2024-08-12 09:38 | Outpatient (AMB) | payer MEDICARE, SELFPAY ==
--- NOTE | 2024-08-12 10:08 | A.OFFPC_ITS ---
Vital Signs 08/12/24 10:09 Height 5 ft Weight 234 lb BMI 45.7 BP 126/82 Blood Pressure Location Lt brachial Position Sitting Respiration 20 Pulse 97 Pulse Source Pulse Oximeter Temp 100.2 F Temp Source Oral Pulse Oximetry (%) 97 Oxygen Delivery Method Room Air Intake Visit Reasons: Vomiting, cough, stomach pain Intake Note: Pt is here today for a sick visit. Pt c/o vomiting, abdominal pain, cough since Saturday. Allergies No Known Allergies Allergy (Verified 08/12/24 10:11) Medication List - Last Reconciled 08/12/24 by Darleen Weaver MD apixaban (Eliquis) 5 mg PO BID atorvastatin 20 mg PO DAILY digoxin 125 mcg PO DAILY Tobacco use date assessed: 08/12/24 Dental Screening Dental Screen Date: 06/08/24 HPI Vomiting, cough, stomach pain HPI Details Patient complains of 3 days of nausea vomiting epigastric abdominal discomfort started after eating dinner 3 days ago. Patient has not had a bowel movement for 3 days. He has been passing gas. Patient denies fever chills chest pain shortness or breath, palpitations. ON LICENSE OF [facility] Medical History (Updated 08/12/24 @ 11:06 by Darleen Weaver MD) Anemia Annual physical exam Carpal tunnel syndrome of right wrist Degenerative joint disease (DJD) of lumbar spine Hyperlipidemia Atrial fibrillation Surgical History No pertinent past surgical history Family History Father No problems noted. Mother No problems noted. Social History Housing: House Alcohol intake: never Patient Tobacco Use Status: Never used Tobacco e-Cigarette/Vaping Use: Never Used service: No Current occupational status: retired Current occupation: rt hand Cognitive needs: No Hearing needs: No Vision needs: No Questionnaire Thrive Questionnaire Date Thrive assessed: 06/08/24 ANN-MARIE-7 AMB Questionnaire ANN-MARIE-7 Date ANN-MARIE - 7 assessed: 06/08/24 Source: Developed by Drs. Daniel Paul, Kavya Macias, Justin Rocha and colleagues, with an educational gladis from [employer] Review of Systems Const All systems reviewed & are unremarkable except as noted in HPI and below Eyes Reports no additional complaints ENT Reports no additional complaints Card Reports no additional complaints Resp Reports no additional complaints GI Reports no additional complaints Reports no additional complaints Physical exam (Primary Care) Vital Signs: Last Vital Signs Temp 100.2 F 08/12/24 10:09 Pulse 97 08/12/24 10:09 Resp 20 08/12/24 10:09 BP 126/82 08/12/24 10:09 Pulse Ox 97 08/12/24 10:09 Oxygen Delivery Method Room Air 08/12/24 10:09 BMI result Body Mass Index 45.7 Tobacco/Smoking Status: Tobacco use Status Tobacco use date assessed 08/12/24 08/12/24 10:15 Patient Tobacco Use Status Never used Tobacco 08/12/24 10:15 e-Cigarette/Vaping Use Never Used 08/12/24 10:15 Thrive Assessment: Date of Thrive Assessment Date Thrive assessed 06/08/24 08/12/24 10:15 Const General: no acute distress HENMT Head: Yes normal to inspection Eyes General: appearance normal, both eyes and all related structures Neck Neck: Yes no lymphadenopathy and Yes supple Resp Effort & Inspection: normal respiratory effort Auscultation: clear to auscultation bilaterally Cardio Rhythm: regular rhythm Heart sounds: S1 normal heart sound present and S2 normal heart sound present GI Inspection: Yes obesity Palpation (GI): Soft to palpation and Tenderness to palpation present (GI) in the epigastrum; with no rebound tenderness Percussion: Yes normal to percussion Auscultation: normal bowel sounds Coding Level of Care Code Est Pt Level 4 (40007) Diagnoses Abdominal pain R10.9 Atrial fibrillation I48.91 Assessment & Plan Assessment & Plan (1) Abdominal pain: Code(s): R10.9 - Unspecified abdominal pain Category: Medical Plan: Questionable constipation v/s rule out small-bowel obstruction. Check labs UA abdominal series. patient was advised to start MiraLax twice a day until soft bowel movements, increasing fluid intake. (2) Atrial fibrillation: Comment: Follow-up with cardiology every 6 months, normal echocardiogram and Holter consistent with persistent AFib with well controlled heart rate 06/14 Code(s): I48.91 - Unspecified atrial fibrillation Category: Medical Plan: EKG showed AFib with a heart rate of [address]-T changes. Patient will continue Eliquis and digoxin Orders: Orders Complete Blood Count Auto Diff Today R10.9 - Unspecified abdominal pain Comprehensive Met. Panel Today R10.9 - Unspecified abdominal pain Lipase Today R10.9 - Unspecified abdominal pain UA w Microscopic Today R10.9 - Unspecified abdominal pain AMB EKG-In Office Today I48.91 - Unspecified atrial fibrillation, R10.9 - Unspecified abdominal pain XR abdomen 3V Today K56.609 - Unspecified intestinal obstruction, unspecified as to partial versus complete obstruction, R10.9 - Unspecified abdominal pain Medications: New polyethylene glycol 3350 (Miralax) 17 grams PO BID 238 grams 0RF
[2024-08-12 10:09] VITALS: BP 126/82; PULSE 97; RESP 20; TEMP 37.9; O2SAT 97; BMI 45.7
--- OUTSIDE RECORDS SUMMARY | 2024-08-12 10:54 | XMS_ITS | Clinical Summary ---
Author Organization [facility] Address [address] [place] [address] Care Team Providers Care Card Tender Name Role Phone Darleen Weaver MD Primary Care Provider [phone] Allergies No known active allergies Medications Medication [...] age to complete this topic Care Teams Card Tender Relationship Specialty Start Date End Date Darleen Weaver MD [address] [place] [address] PCP - General Bridge Rigger 10/08/19
== END 2024-08-12 11:07 | disposition home or self-care (01) ==
LOC: HO.HMCC 09:38
PROVIDERS: PCP Internal Medicine; Visit Provider Internal Medicine
DX: R10.9 Unspecified abdominal pain (principal); I48.91 Unspecified atrial fibrillation

== ENCOUNTER 2024-08-12 09:38 | Outpatient (REF) | payer MEDICARE, SELFPAY ==
--- NOTE | ~2024-08-12 | XR_ITS ---
EXAMINATION: XR ABDOMEN COMPLETE CLINICAL INDICATION: R10.9 - Unspecified abdominal pain COMPARISON: None available. TECHNIQUE: 2 views of the abdomen. FINDINGS: Gas-filled distended small and large intestine. Air-fluid levels in the left hemiabdomen. No gross wall thickening. Multilevel thoracolumbar spondylosis. Nonspecific areas of complications both sides of abdomen. Heart silhouette appears enlarged. XR/XR abdomen min 2V IMPRESSION: Distal bowel obstruction versus partial/intermittent bowel obstruction. Electronically signed by: Jorge Gardner MD 08/12/2024 12:44 PM EDT
--- OUTSIDE RECORDS SUMMARY | 2024-08-12 12:25 | XMS_ITS | Clinical Summary ---
Author Organization [facility] Address [address] [place] [address] Care Team Providers Care Draw Operator Name Role Phone Darleen Weaver MD Primary Care Provider [phone] Allergies No known active allergies Medications Medication [...] age to complete this topic Care Teams Draw Operator Relationship Specialty Start Date End Date Darleen Weaver MD [address] [place] [address] PCP - General Pharmacy Technician Infusion 10/08/19
[2024-08-12 13:11] LABS: Appearance Urine Turbid; Color Urine Dark Yellow; Glucose Urine UA Negative (Negative); Leukocyte Esterase Urine Negative (Negative); Nitrite Urine Negative (Negative); PH 5.5 (5.0-9.0); Specific Gravity - Urine 1.025 (1.005-1.025); UMIC TRIGGER UA YES; Urine Blood Moderate (2+) (Negative); Urine Ketones Trace mg/dL (Negative); Urine Protein 300 (3+) mg/dL (Neg-Trace)
[2024-08-12 13:13] LABS: Bacteria Urine None Seen (None Seen); Hyaline Casts Urine 0-2 /LPF (0-2); Squamous Epithelial Cell Urine 0-2 /HPF (0-2); WBC Urine 0-5 /HPF (0-5)
[2024-08-12 13:23] LABS: Basophils Percent Auto 0.2 % (0-2); Eosinophils Percent Auto 0.1 % (0-4); Hematocrit 40.2 % (42.0-52.0); Hemoglobin 13.4 g/dl (14.0-18.0); Imm Gran Abs Auto 0.12 X10*3/uL (0.00-0.03); Imm Gran Pct Auto 0.7 % (0.0-0.4); Lymphocytes Absolute Auto 2.3 X10*3/uL (1.2-4.9); Lymphocytes Percent Auto 12.8 % (20-40); MANUAL DIFF FLAG SCAN; Mean Corpuscular HGB Conc 33.3 g/dl (31.0-36.0); Mean Corpuscular Hemoglobin 30.5 pg (27.0-33.0); Mean Corpuscular Volume 91.4 fL (80.0-98.0); Mean Platelet Volume 10.5 fL (9.4-12.4); Monocytes Absolute Auto 2.1 X10*3/uL (0.1-1.2); Neutrophils Absolute Auto 13.2 x10*3/uL (2.0-8.3); Neutrophils Percent Auto 74.2 % (45-73); Platelet Count 288 X10*3/uL (160-400); Red Cell Distribution Width 13.2 % (11.0-16.0); SCAN SMEAR FLAG 1; White Blood Count 17.7 X10*3/uL (4.8-10.8)
[2024-08-12 13:51] LABS: SLIDE REVIEW VERIFIED
[2024-08-12 14:46] LABS: Alanine Aminotransferase 16 U/L (0-40); Albumin Level 4.7 g/dL (3.5-5.0); Anion Gap 14 (12-20); Aspartate Amino Transferase 24 U/L (5-37); Bilirubin Total 5.5 mg/dL (0.0-1.0); Blood Urea Nitrogen 19 mg/dL (9-16); Calcium 9.1 mg/dL (8.4-10.2); Carbon Dioxide 23 mmol/L (22-29); Chloride 104 mmol/L (96-108); Estimated Glomerular Filt Rate 46; Glucose Random 106 mg/dL (60-115); Lipase 19 U/L (8-78); Potassium 4.1 mmol/L (3.3-5.1); Sodium 137 mmol/L (135-145); Total Protein 7.4 g/dL (6.5-8.0)
[2024-08-12 14:58] LABS: Alkaline Phosphatase 82 U/L (39-117)
== END 2024-08-12 09:39 | disposition home or self-care (01) ==
LOC: HO.HMGCLDS 09:38
PROVIDERS: PCP Internal Medicine; Visit Provider Internal Medicine
DX: R10.13 Epigastric pain (principal); I48.91 Unspecified atrial fibrillation; K56.609 Unspecified intestinal obstruction, unspecified as to partial versus complete obstruction
CPT/HCPCS: 36415; 74019; 80053; 81001; 83690; 85025; 99212

== ENCOUNTER → 2024-08-12 11:20 | Outpatient (BNV) | payer MEDICARE, SELFPAY | PROVIDERS: PCP Internal Medicine; Visit Provider Radiology Diagnostic Radiology | DX: R14.0 Abdominal distension (gaseous) (principal) | CPT/HCPCS: 74019 ==

== ENCOUNTER 2024-08-14 07:11 | Outpatient (REF) | payer MEDICARE, SELFPAY ==
--- OUTSIDE RECORDS SUMMARY | 2024-08-14 07:13 | XMS_ITS | Clinical Summary ---
Author Organization [facility] Address [address] [place] [address] Care Team Providers Care Bi Manager Name Role Phone Darleen Weaver MD Primary Care Provider [phone] Allergies No known active allergies Medications Medication [...] age to complete this topic Care Teams Bi Manager Relationship Specialty Start Date End Date Darleen Weaver MD [address] [place] [address] PCP - General Squeegeer And Former 10/08/19
[2024-08-14 10:00] LABS: MANUAL DIFF FLAG NO
[2024-08-14 10:07] LABS: Basophils Absolute Auto 0.1 X10*3/uL (0.0-0.2); Basophils Percent Auto 0.5 % (0-2); Eosinophils Absolute Auto 0.2 X10*3/uL (0.0-0.4); Eosinophils Percent Auto 1.7 % (0-4); Hematocrit 38.2 % (42.0-52.0); Hemoglobin 12.6 g/dl (14.0-18.0); Imm Gran Abs Auto 0.02 X10*3/uL (0.00-0.03); Imm Gran Pct Auto 0.2 % (0.0-0.4); Lymphocytes Absolute Auto 2.1 X10*3/uL (1.2-4.9); Mean Corpuscular Hemoglobin 30.1 pg (27.0-33.0); Mean Corpuscular Volume 91.2 fL (80.0-98.0); Mean Platelet Volume 10.5 fL (9.4-12.4); Monocytes Absolute Auto 1.1 X10*3/uL (0.1-1.2); Monocytes Percent Auto 11.7 % (2-11); Neutrophils Absolute Auto 5.8 x10*3/uL (2.0-8.3); Neutrophils Percent Auto 62.9 % (45-73); Platelet Count 309 X10*3/uL (160-400); Red Blood Count 4.19 X10*6/uL (4.60-5.80); Red Cell Distribution Width 13.1 % (11.0-16.0); White Blood Count 9.2 X10*3/uL (4.8-10.8)
[2024-08-14 10:22] LABS: Anion Gap 14 (12-20); Blood Urea Nitrogen 20 mg/dL (9-16); Calcium 8.8 mg/dL (8.4-10.2); Carbon Dioxide 21 mmol/L (22-29); Chloride 112 mmol/L (96-108); Estimated Glomerular Filt Rate > 60; Glucose Random 92 mg/dL (60-115); Potassium 3.9 mmol/L (3.3-5.1); Sodium 143 mmol/L (135-145)
== END 2024-08-14 07:12 | disposition home or self-care (01) ==
LOC: HO.HMGCLDS 07:11
PROVIDERS: PCP Internal Medicine; Visit Provider Internal Medicine
DX: R10.9 Unspecified abdominal pain (principal)
CPT/HCPCS: 36415; 80048; 85025

== ENCOUNTER 2024-10-26 08:26 | Outpatient (REF) | payer MEDICARE, SELFPAY ==
--- OUTSIDE RECORDS SUMMARY | 2024-10-26 08:46 | XMS_ITS | Clinical Summary ---
Author Organization [facility] Address [address] [place] [address] Care Team Providers Care Neurophysiological Technician Name Role Phone Darleen Weaver MD Primary Care Provider [phone] Allergies No known active allergies Medications Medication [...] 1-dose 75+ series) 2015 Influenza Vaccine (#1) 2024 Hepatitis B Vaccines Aged Out No long er eligible based on patient's age to complete this topic RSV Ped < 20 months Aged Out No longe r eligible based on patient's age to complete this topic Care Teams Neurophysiological Technician Relationship Specialty Start Date End Date Darleen Weaver MD [address] [place] [address] PCP - General Stock Clerk 10/08/19
--- OUTSIDE RECORDS SUMMARY | 2024-10-26 08:46 | XMS_ITS | Clinical Summary ---
Author Organization [facility] Address [address] [facility] [address] [place] [id number] Phone Care Team Providers Care Second Hand Paper Machine Name Role Phone Darleen Weaver MD Primary Care Provider [phone] Allergies No known active allergies Medications atorvastatin (LIPITOR) 20 MG tablet 11/01/2022 Active digoxin (LANOXIN) 125 mcg tablet 11/01/2022 Acti ve Active Problems No known active problems Social History Tobacco Use Types Packs/Day Years Used Date Smoking Tobacco: Never Assessed Education Answer Date Recorded Are you interested in more education? Not on ernestina e 11/03/2022 Are you concerned about learning? Not on file 11/03/2022 No 11/03/2022 No 11/03/2022 Digital Access Answer Date Recorded No 11/03/2022 No 11/03/2022 Reliable internet access at home? Not on file 11/03/2022 Device with a working camera? Not on file Sex and Gender Information Value Date Recorded Sex Assigned at Not on file Legal Sex Male 10:17 AM EDT Gender Identity Not on file Sexual Orientation Not on file Last Filed Vital Signs Vital Sign Reading Time Taken Comments Blood Pressure 116/71 11/03/2022 10:39 AM EDT Pulse 63 11/03/2022 10:39 AM EDT Temperature 36.7 C (98 F) 11/03/2022 10:39 AM EDT Respiratory Rate 16 11/03/2022 10:39 AM EDT Oxygen Saturation 97% 11/03/2022 10:39 AM EDT Inhaled Oxygen Concentration - - Weight 102.1 kg (225 lb) 11/03/2022 10:39 AM EDT Height 172.7 cm (5' 8 ) 11/03/2022 10:39 AM EDT Body Mass Index 34.21 11/03/2022 10:39 AM EDT Plan of Treatment Health Maintenance Due Date Last Done Comments Adult Td,Tdap Booster 1940 POTASSIUM LEVEL 1940 DEPRESSION SCREENING 1952 PNEUMOCOCCAL VACCINES (50+ years) (1 of 1 - PCV) 1990 ZOSTER VACCINES (1 of 2) 1990 RSV VACCINE (1 - 1-dose 75+ series) 2015 COVID-19 VACCINE (4 - 2023-2 5 season) 2023 01/03/2021, 06/11/2020, 05/21/2020 HEPATITIS A VACCINES Aged Out No long er eligible based on patient's age to complete this topic HIB VACCINES Aged Out No longer eligi ble based on patient's age to complete this topic MENINGOCOCCAL VACCINES (ACWY) Aged Out No longer eligible based on patient's age to complete this topic MENINGOCOCCAL VACCINES (B) Aged Out N o longer eligible based on patient's age to complete this topic Medical Devices Not on file Insurance [facility] PREF [facility] MEDIC[facility] REPLACEMENT BEENA CUELLAR [facility] MEDICARE PART A & B MEDICARE PART A & B [facility] VALUE MEDICARE REPLACEMENT [id number] MEDICARE PART A & B MEDICARE REPLACEMENT BEENA CUELLAR [id number] MEDICARE PART A & B [place] [id number] MEDICARE PART A & B [facility] PREF [facility] MEDICARE REPLACEMENT [place] [id number] MEDICARE PART A & B Care Teams Second Hand Paper Machine Relationship Specialty Start Date End Date Darleen Weaver MD [facility] [place] [address] PCP - General Internal Medicine 11/03/22 Additional Source Comments The information contained in this document represents components of the legal health record. It is not the complete legal health record.[facility]
[2024-10-26 10:18] LABS: MANUAL DIFF FLAG NO
[2024-10-26 10:33] LABS: Hematocrit 39.1 % (42.0-52.0); Hemoglobin 13.0 g/dl (14.0-18.0); Imm Gran Abs Auto 0.03 X10*3/uL (0.00-0.03); Imm Gran Pct Auto 0.4 % (0.0-0.4); Lymphocytes Absolute Auto 3.0 X10*3/uL (1.2-4.9); Mean Corpuscular HGB Conc 33.2 g/dl (31.0-36.0); Mean Corpuscular Hemoglobin 30.0 pg (27.0-33.0); Mean Corpuscular Volume 90.1 fL (80.0-98.0); NRBC Abs Auto 0.000 X10*3/uL (0.0-0.012); NRBC Pct Auto 0.0 /100WBC (0.0-0.2); Platelet Count 353 X10*3/uL (160-400); Red Blood Count 4.34 X10*6/uL (4.60-5.80); White Blood Count 8.4 X10*3/uL (4.8-10.8)
[2024-10-26 10:55] LABS: Anion Gap 13 (12-20)
[2024-10-26 10:58] LABS: Alanine Aminotransferase 18 U/L (0-40); Albumin Level 4.7 g/dL (3.5-5.0); Alkaline Phosphatase 96 U/L (39-117); Aspartate Amino Transferase 23 U/L (5-37); Blood Urea Nitrogen 24 mg/dL (9-16); Calcium 9.2 mg/dL (8.4-10.2); Carbon Dioxide 23 mmol/L (22-29); Chloride 112 mmol/L (96-108); Cholesterol 149 mg/dL (<200); Estimated Glomerular Filt Rate 46; HDL Cholesterol 39 mg/dL (>40); Potassium 4.5 mmol/L (3.3-5.1); Sodium 143 mmol/L (135-145); Total Protein 7.5 g/dL (6.5-8.0); Triglycerides 129 mg/dL (<150)
[2024-10-26 11:29] LABS: Folate 7.6 ng/mL (> or = 4.0); Vitamin B12 234 pg/mL (200-900)
[2024-10-26 11:50] LABS: Gamma Glutamyl Transpeptidase 23 U/L (11-51)
== END 2024-10-26 08:27 | disposition home or self-care (01) ==
LOC: HO.HMGCLDS 08:26
PROVIDERS: PCP Internal Medicine; Visit Provider Internal Medicine
DX: I48.91 Unspecified atrial fibrillation (principal); D64.9 Anemia, unspecified; E78.5 Hyperlipidemia, unspecified
CPT/HCPCS: 36415; 80053; 80061; 82248; 82607; 82746; 82977; 83615; 83921; 85025

== ENCOUNTER 2024-10-28 10:11 | Outpatient (AMB) | payer MEDICARE, SELFPAY ==
[2024-10-28 10:36] VITALS: BP 134/80; PULSE 82; RESP 20; TEMP 36.8; O2SAT 98; BMI 32.1
--- NOTE | 2024-10-28 10:36 | MHC.PC.OV ---
Vital Signs 10/28/24 10:36 Height 5 ft 10 in Weight 224 lb BMI 32.1 BP 134/80 Blood Pressure Location Lt brachial Position Sitting Respiration 20 Pulse 82 Pulse Source Pulse Oximeter Temp 98.2 F Temp Source Oral Pulse Oximetry (%) 98 Oxygen Delivery Method Room Air Intake Visit Reasons: PE Intake Note: Pt is here today for PE. Allergies No Known Allergies Allergy (Verified 10/28/24 10:39) Medication List - Last Reconciled 10/28/24 by Darleen Weaver MD apixaban (Eliquis) 5 mg PO BID atorvastatin 20 mg PO DAILY digoxin 125 mcg PO DAILY polyethylene glycol 3350 (Miralax) 17 grams PO BID Tobacco use date assessed: 10/28/24 Fall risk assessment: No Falls in past year Last assessed Fall Risk: 10/28/24 Dental Screening Dental Screen Date: 10/28/24 Did you have a dental visit in the last 12 months?: Yes Did you have a dental problem in the last 6 months where you did not have access to dental care?: No Was dental information given to patient?: Patient has dentist HPI PE HPI Details Patient presents for physical. he reports episodes of increased urinary frequency up to 3 x a night and urgency on and off for few weeks but denies urinary incontinence or dysuria, abdominal pain nausea vomiting fever chills [facility] Medical History (Updated 10/28/24 @ 11:08 by Darleen Weaver MD) Anemia Annual physical exam Carpal tunnel syndrome of right wrist Degenerative joint disease (DJD) of lumbar spine Hyperlipidemia Atrial fibrillation Surgical History No pertinent past surgical history Family History Father No problems noted. Mother No problems noted. Social History Housing: House Alcohol intake: never Patient Tobacco Use Status: Never used Tobacco e-Cigarette/Vaping Use: Never Used service: No Current occupational status: retired Current occupation: rt hand Cognitive needs: No Hearing needs: No Vision needs: No Questionnaire Thrive Questionnaire Date Thrive assessed: 06/08/24 AUDIT C Alcohol Use Questionnaire (AUDIT-C) 1. How often do you have a drink containing alcohol?: Never 3. How often do you have six or more drinks on one occasion?: Never Total Score: 0 ANN-MARIE-7 AMB Questionnaire ANN-MARIE-7 Date ANN-MARIE - 7 assessed: 06/08/24 Source: Developed by Drs. Daniel Paul, Kavya Macias, Justin Rocha and colleagues, with an educational gladis from [employer]. Review of Systems Const All systems reviewed & are unremarkable except as noted in HPI and below Eyes Reports no additional complaints ENT Reports no additional complaints Card Reports no additional complaints Resp Reports no additional complaints GI Reports no additional complaints Physical exam (Primary Care) Vital Signs: Last Vital Signs Temp 98.2 F 10/28/24 10:36 Pulse 82 10/28/24 10:36 Resp 20 10/28/24 10:36 BP 134/80 10/28/24 10:36 Pulse Ox 98 10/28/24 10:36 Oxygen Delivery Method Room Air 10/28/24 10:36 BMI result Body Mass Index 32.1 Tobacco/Smoking Status: Tobacco use Status Tobacco use date assessed 10/28/24 10/28/24 10:44 Patient Tobacco Use Status Never used Tobacco 10/28/24 10:39 e-Cigarette/Vaping Use Never Used 10/28/24 10:39 Thrive Assessment: Date of Thrive Assessment Date Thrive assessed 06/08/24 10/28/24 10:39 Const General: no acute distress HENMT Head: Yes normal to inspection Ears: hearing grossly normal bilaterally Face and sinus: Yes normal facial exam Neck Neck: Yes no lymphadenopathy and Yes supple Resp Effort & Inspection: normal respiratory effort Auscultation: clear to auscultation bilaterally Cardio Rhythm: regular rhythm Heart sounds: S1 normal heart sound present and S2 normal heart sound present GI Inspection: Yes normal to inspection Palpation (GI): Soft to palpation Percussion: Yes normal to percussion Auscultation: normal bowel sounds Coding Level of Care Code Est Pt Prev Care >65y(24318) Diagnoses Hematuria R31.9 Atrial fibrillation I48.91 Annual physical exam Z00.00 Assessment & Plan Assessment & Plan (1) Hematuria: Code(s): R31.9 - Hematuria, unspecified Category: Medical Plan: For microscopic hematuria repeat urinalysis urine culture obtain renal and bladder ultrasound (2) Atrial fibrillation: Comment: Follow-up with cardiology every 6 months, normal echocardiogram and Holter consistent with persistent AFib with well controlled heart rate 06/14 Code(s): I48.91 - Unspecified atrial fibrillation Category: Medical Plan: Rate controlled on digoxin and anticoagulated on Eliquis follow-up with cardiology (3) Annual physical exam: Code(s): Z00.00 - Encounter for general adult medical examination without abnormal findings Category: Medical Plan: Well-balanced diet regular physical activity discussed with the patient Orders: Orders Urine Culture Today R31.9 - Hematuria, unspecified Urine Cytology Today R31.9 - Hematuria, unspecified UA w Microscopic Today R31.9 - Hematuria, unspecified US renal BI Today R31.9 - Hematuria, unspecified US bladder Today R31.9 - Hematuria, unspecified, R33.9 - Retention of urine, unspecified Medications: New tamsulosin (Flomax) 0.4 mg PO BEDTIME 90 caps 0RF
--- OUTSIDE RECORDS SUMMARY | 2024-10-28 10:47 | XMS_ITS | Clinical Summary ---
Author Organization [facility] Address [address] [place] [address] Care Team Providers Care Cancer Program Director Name Role Phone Darleen Weaver MD Primary Care Provider [phone] Allergies No known active allergies Medications Medication [...] age to complete this topic Care Teams Cancer Program Director Relationship Specialty Start Date End Date Darleen Weaver MD [address] [place] [address] PCP - General Research Associate Molecular Biology 10/08/19
--- OUTSIDE RECORDS SUMMARY | 2024-10-28 10:47 | XMS_ITS | Clinical Summary ---
Author Organization [facility] Address [address] [facility] [address] [place] [address] Phone Care Team Providers Care Sugarcane Planter Name Role Phone Darleen Weaver MD Primary Care Provider [phone] Allergies No known active allergies Medications atorvastatin [...] topic Medical Devices Not on file Insurance [facility] PREF [facility] MEDICARE REPLACEMENT [employer] [facility] MEDICARE PART A & B MEDICARE PART A & B [facility] VALUE MEDICARE REPLACEMENT [facility] MEDICARE PART A & B MEDICARE REPLACEMENT [place] [id number] MEDICARE PART A & B [place] [id number] MEDICARE PART A & B [facility] PREF [facility] MEDICARE REPLACEMENT [place] [id number] MEDICARE PART A & B Care Teams Sugarcane Planter Relationship Specialty Start Date End Date Darleen Weaver MD [facility] [place] [address] PCP - General Internal Medicine 11/03/22 Additional Source Comments The information contained in this document represents components of the legal health record. It is not the complete legal health record.[facility]
== END 2024-10-28 11:14 | disposition home or self-care (01) ==
LOC: HO.HMCC 10:12
PROVIDERS: PCP Internal Medicine; Visit Provider Internal Medicine
DX: R31.9 Hematuria, unspecified (principal); I48.91 Unspecified atrial fibrillation; Z00.00 Encounter for general adult medical examination without abnormal findings; Z23 Encounter for immunization

== ENCOUNTER → 2024-10-28 10:11 | Outpatient (BNVA) | payer MEDICARE, SELFPAY | PROVIDERS: PCP Internal Medicine; Visit Provider Internal Medicine | DX: Z00.00 Encounter for general adult medical examination without abnormal findings (principal); R35.0 Frequency of micturition; R39.15 Urgency of urination; R31.9 Hematuria, unspecified; I48.91 Unspecified atrial fibrillation; R33.9 Retention of urine, unspecified; Z23 Encounter for immunization | CPT/HCPCS: 90471; 90677; 99397 ==

== ENCOUNTER 2024-12-08 13:50 | Outpatient (REF) | payer MEDICARE, SELFPAY ==
--- NOTE | ~2024-12-08 | US_ITS ---
EXAMINATION: US RETROPERITONEUM HISTORY: R31.9 - Hematuria, unspecified TECHNIQUE: Real-time grayscale ultrasound imaging of the kidneys was performed and images were reviewed. COMPARISON: There are no prior studies available for comparison. FINDINGS: Right kidney: The right kidney measures 11.7 x 5.4 x 6.3 cm. Renal parenchymal echotexture and thickness are normal. Multiple cysts are noted including a 2.7 x 3.2 x 2.8 cm upper pole cyst, a 2.7 x 2.6 x 2.6 cm interpolar cyst, and a 1.2 x 0.9 x 1.3 cm lower pole cyst. There is a 1.2 x 0.8 x 1.0 cm nonobstructing lower pole calculus. There is no hydronephrosis. Left Kidney: The left kidney measures 13.4 x 4.9 x 5.2 cm. Renal parenchymal echotexture and thickness are normal. There is a 5.0 x 4.8 x 4.4 cm lower pole cyst and a 3.5 x 2.9 x 3.4 cm septated upper pole cyst. There is a 1.1 x 0.9 x 1.1 cm nonobstructing calculus at the lower pole. There may be slight fullness of the renal pelvis. The urinary bladder is nondistended. Bilateral ureteral jets are not identified. Before voiding, the urinary bladder measured 4.3 x 3.8 x 6.6 cm, for an estimated volume of 57.8 mL. After voiding, the urinary bladder measured 2.7 x 1.5 x 2.1 cm, for an estimated volume of 6 mL. The prostate measures 4.9 x 4.5 x 5.0 cm, for an estimated volume of 55.6 mL. US/US retroperitoneal comp IMPRESSION: 1. Bilateral nephrolithiasis as described. 2. Multiple bilateral renal cysts. A 3.5 x 2.9 x 3.4 cm cyst at the upper pole of the left kidney demonstrate septations, and follow-up is recommended. 3. Limited evaluation of the urinary bladder due to nondistention. Post void bladder residual of 6 mL. 4. Prostate volume of 55.6 mL. Electronically signed by: Daniel Burroughs MD 12/08/2024 02:43 PM EDT
== END 2024-12-08 13:51 | disposition home or self-care (01) ==
LOC: HO.HMGCX 13:50
PROVIDERS: PCP Internal Medicine; Visit Provider Internal Medicine
DX: R31.9 Hematuria, unspecified (principal)
CPT/HCPCS: 76770

== ENCOUNTER → 2024-12-08 13:52 | Outpatient (BNV) | payer MEDICARE, SELFPAY | PROVIDERS: PCP Internal Medicine; Visit Provider Radiology Diagnostic Radiology | DX: N20.0 Calculus of kidney (principal); N28.1 Cyst of kidney, acquired | CPT/HCPCS: 76770 ==

== ENCOUNTER 2024-12-09 11:34 | Outpatient (REF) | payer MEDICARE, SELFPAY ==
[2024-12-09 16:17] LABS: Appearance Urine Clear; Glucose Urine UA Negative (Negative); PH 5.5 (5.0-9.0); Specific Gravity - Urine 1.020 (1.005-1.025); UMIC TRIGGER UA YES
== END 2024-12-09 11:35 | disposition home or self-care (01) ==
LOC: HO.HMGCLDS 11:34
PROVIDERS: PCP Internal Medicine; Visit Provider Internal Medicine
DX: R31.9 Hematuria, unspecified (principal); I48.91 Unspecified atrial fibrillation
CPT/HCPCS: 81001; 87086; 88112; 99212

== ENCOUNTER 2024-12-09 11:34 | Outpatient (AMB) | payer MEDICARE, SELFPAY ==
--- NOTE | 2024-12-09 11:38 | MHC.PC.OV ---
Vital Signs 12/09/24 11:39 Height 5 ft 10 in Weight 222 lb BMI 31.9 BP 122/78 Blood Pressure Location Lt brachial Position Sitting Respiration 18 Pulse 67 Pulse Source Pulse Oximeter Pulse Oximetry (%) 98 Oxygen Delivery Method Room Air Intake Visit Reasons: 5 weeks follow up Intake Note: Pt is here today for 5 weeks follow up visit on u/s results. Allergies No Known Allergies Allergy (Verified 12/09/24 11:40) Medication List - Last Reconciled 12/09/24 by Darleen Weaver MD apixaban (Eliquis) 5 mg PO BID atorvastatin 20 mg PO DAILY digoxin 125 mcg PO DAILY polyethylene glycol 3350 (Miralax) 17 grams PO BID tamsulosin (Flomax) 0.4 mg PO BEDTIME Tobacco use date assessed: 12/09/24 Fall risk assessment: No Falls in past year Last assessed Fall Risk: 12/09/24 Dental Screening Dental Screen Date: 10/28/24 HPI 5 weeks follow up HPI Details Patient presents for the follow-up of urinary urgency and nocturia slightly improved on Fosamax. Hyperlipidemia is controlled on atorvastatin and AFib rate controlled on digoxin. [facility] Medical History (Updated 12/09/24 @ 15:17 by Darleen Weaver MD) Hematuria Nephrolithiasis Anemia Annual physical exam Carpal tunnel syndrome of right wrist Degenerative joint disease (DJD) of lumbar spine Hyperlipidemia Atrial fibrillation Surgical History No pertinent past surgical history Family History Father No problems noted. Mother No problems noted. Social History Housing: House Alcohol intake: never Patient Tobacco Use Status: Never used Tobacco e-Cigarette/Vaping Use: Never Used service: No Current occupational status: retired Current occupation: rt hand Cognitive needs: No Hearing needs: No Vision needs: No Questionnaire PHQ-9 Over the last 2 weeks, how often have you been bothered by any of the following problems? 1. Little interest or pleasure in doing things: not at all 2. Feeling down, depressed, or hopeless: not at all 3. Trouble falling or staying asleep, or sleeping too much: not at all 4. Feeling tired or having little energy: not at all 5. Poor appetite or overeating: not at all 6. Feeling bad about yourself - or that you are a failure or have let yourself or your family down: not at all 7. Trouble concentrating on things, such as reading the newspaper or watching television: not at all 8. Moving or speaking so slowly that other people could have noticed. Or the opposite - being so fidgety or restless that you have been moving around a lot more than usual: not at all 9. Thoughts that you would be better off or of hurting yourself in some way: not at all Total score: 0 Depression Screening Interpretation: Negative Depression Screening Done: Yes Source: Developed by Drs. Daniel Paul, Kavya Macias, Justin Rocha and colleagues, with an educational gladis from [employer]. Thrive Questionnaire Date Thrive assessed: 06/08/24 ANN-MARIE-7 AMB Questionnaire ANN-MARIE-7 Date ANN-MARIE - 7 assessed: 06/08/24 Feeling nervous, anxious, or on edge: 0 = Not at all Not being able to stop or control worryin = Not at all Worrying too much about different things: 0 = Not at all Trouble relaxin = Not at all Being so restless that it is hard to sit still: 0 = Not at all Becoming easily annoyed or irritable: 0 = Not at all Feeling afraid as if something awful might happen: 0 = Not at all Total ANN-MARIE-7 score (0-4 normal; 5-9 mild; 10-14 moderate; 15-21 severe): 0 Source: Developed by Drs. Daniel Paul, Justin Lo and colleagues, with an educational gladis from [employer]. Review of Systems Const All systems reviewed & are unremarkable except as noted in HPI and below Eyes Reports no additional complaints ENT Reports no additional complaints Card Reports no additional complaints Resp Reports no additional complaints GI Reports no additional complaints Reports no additional complaints Physical exam (Primary Care) Vital Signs: Last Vital Signs Pulse 67 12/09/24 11:39 Resp 18 12/09/24 11:39 BP 122/78 12/09/24 11:39 Pulse Ox 98 12/09/24 11:39 Oxygen Delivery Method Room Air 12/09/24 11:39 BMI result Body Mass Index 31.9 Tobacco/Smoking Status: Tobacco use Status Tobacco use date assessed 12/09/24 12/09/24 11:43 Patient Tobacco Use Status Never used Tobacco 12/09/24 11:43 e-Cigarette/Vaping Use Never Used 12/09/24 11:43 PHQ-9: PHQ-9 Score PHQ-9: Total score 0 12/09/24 11:44 Depression Screening Interpretation: Negative Thrive Assessment: Date of Thrive Assessment Date Thrive assessed 06/08/24 12/09/24 11:43 Const General: no acute distress HENMT Head: Yes normal to inspection Throat: Yes posterior oropharynx normal Resp Effort & Inspection: normal respiratory effort Auscultation: clear to auscultation bilaterally Cardio Rhythm: regular rhythm Heart sounds: S1 normal heart sound present and S2 normal heart sound present GI Inspection: Yes normal to inspection Palpation (GI): Soft to palpation Percussion: Yes normal to percussion Auscultation: normal bowel sounds Coding Level of Care Code Est Pt Level 4 (40073) Diagnoses Hematuria R31.9 Atrial fibrillation I48.91 Assessment & Plan Assessment & Plan (1) Hematuria: Comment: Renal ultrasound bilateral no obstructive nephrolithiasis b/i and multiple renal cysts, 3.5x 2.9x3.4 cm septated cyst in the upper lobe L kidney, f/u imaging recommended Code(s): R31.9 - Hematuria, unspecified Category: Medical Plan: Referred to urology, patient will have a repeat urinalysis urine cytology and culture, (2) Atrial fibrillation: Comment: Follow-up with cardiology every 6 months, normal echocardiogram and Holter consistent with persistent AFib with well controlled heart rate 06/14 Code(s): I48.91 - Unspecified atrial fibrillation Category: Medical Plan: Continue digoxin and Eliquis follow-up with Cardiology Orders: Referrals Urology Referral N20.0 - Calculus of kidney, R31.9 - Hematuria, unspecified
[2024-12-09 11:39] VITALS: BP 122/78; PULSE 67; RESP 18; O2SAT 98; BMI 31.9
--- OUTSIDE RECORDS SUMMARY | 2024-12-09 14:55 | XMS_ITS | Clinical Summary ---
Author Organization [facility] Address [address] [place] [address] Care Team Providers Care E Learning Manager Name Role Phone Darleen Weaver MD Primary Care Provider [phone] Allergies No known active allergies Medications Medication [...] age to complete this topic Care Teams E Learning Manager Relationship Specialty Start Date End Date Darleen Weaver MD [address] [place] [address] PCP - General Video Game Script Writer 10/08/19
--- OUTSIDE RECORDS SUMMARY | 2024-12-09 14:55 | XMS_ITS | Clinical Summary ---
Author Organization [facility] Address [address] [facility] [address] [place] [address] Phone Care Team Providers Care Hot Dip Galvanizer Name Role Phone Darleen Weaver MD Primary Care Provider [phone] Allergies No known active allergies Medications atorvastatin [...] VACCINE (1 - 1-dose 75+ series) 2015 INFLUENZA VACCINE (#1) 2024 COVID-19 VACCINE (2024-2 6 season) 2024 01/03/2021, 06/11/2020, 05/21/2020 HEPATITIS A VACCINES Aged [...] topic Medical Devices Not on file Insurance [facility] PREF [facility] MEDICARE REPLACEMENT MEDICARE PART A & B MEDICARE PART A & B [facility] VALUE MEDICARE REPLACEMENT MEDICARE PART A & B MEDICARE PART A & [place] [address] [place] [address] VALUE MEDICARE REPLACEMENT MEDICARE PART A & B [facility] PREF [facility] MEDICARE REPLACEMENT MEDICARE PART A & B Care Teams Hot Dip Galvanizer Relationship Specialty Start Date End Date Darleen Weaver MD [facility] [place] [address] PCP - General Internal Medicine 11/03/22 Additional Source Comments The information contained in this document represents components of the legal health record. It is not the complete legal health record.[facility]
== END 2024-12-09 15:20 | disposition home or self-care (01) ==
LOC: HO.HMCC 11:35
PROVIDERS: PCP Internal Medicine; Visit Provider Internal Medicine
DX: R31.9 Hematuria, unspecified (principal); I48.91 Unspecified atrial fibrillation

== ENCOUNTER 2024-12-15 10:19 | Outpatient (AMB) | payer MEDICARE, SELFPAY ==
--- NOTE | 2024-12-15 10:28 | MHC.OFFVIS ---
Vital Signs 12/15/24 10:30 Height 5 ft 10 in Weight 223 lb 1.725 oz BMI 32.0 BP 120/72 Blood Pressure Location Lt brachial Position Sitting Pulse 73 Pulse Source Monitor Intake Visit Reasons: 1 yr f/up Fabrication Engineer Required: Yes Fabrication Engineer Language: [place] Fabrication Engineer Services: Fabrication Engineer Offered & Declined Fabrication Engineer Name: yakut/grand daughter Accompanied by: Grand Child Allergies No Known Allergies Allergy (Verified 12/09/24 11:40) Medication List - Last Reconciled 12/15/24 by Angel Vilchis MD apixaban (Eliquis) 5 mg PO BID atorvastatin 20 mg PO DAILY digoxin 125 mcg PO DAILY polyethylene glycol 3350 (Miralax) 17 grams PO BID tamsulosin (Flomax) 0.4 mg PO BEDTIME HPI Comments Details: Dale returns for follow-up. He used to go to Cardiology in [place] but then switched over to our care due to some insurance issues. South [place] speaking only. Discussed using granddaughter. Since last seen, he does not have any clear-cut cardiac symptoms. He does get tired going up and downstairs but no exertional angina or palpitations extra. [facility] Medical History Hematuria Nephrolithiasis Anemia Annual physical exam Carpal tunnel syndrome of right wrist Degenerative joint disease (DJD) of lumbar spine Hyperlipidemia Atrial fibrillation Surgical History No pertinent past surgical history Family History Father No problems noted. Mother No problems noted. Social History Housing: House Alcohol intake: never Patient Tobacco Use Status: Never used Tobacco e-Cigarette/Vaping Use: Never Used service: No Current occupational status: retired Current occupation: rt hand Cognitive needs: No Hearing needs: No Vision needs: No Review of Systems Const Denies chills, Denies fatigue, Denies fever(s), Denies frequent falls, Denies weakness, Denies weight gain and Denies weight loss ENT Denies dizziness Card Denies chest pain, Denies leg edema, Denies lightheadedness, Denies palpitations, Denies dyspnea and Denies dyspnea on exertion Resp Denies cough, Denies dyspnea and Denies dyspnea on exertion GI Denies hematochezia Musc Denies abnormal gait, Denies muscle weakness, Denies numbness, Denies radiating pain into limb and Denies tingling Neuro Denies abnormal gait, Denies dizziness, Denies frequent falls, Denies numbness, Denies tingling and Denies weakness Endo Denies fatigue and Denies palpitations Physical Exam Vital Signs: Last Vital Signs Pulse 73 12/15/24 10:30 BP 120/72 12/15/24 10:30 BMI result Body Mass Index 32.0 Const General: comfortable and no acute distress Orientation/consciousness: patient oriented x3 HEENT Other: Unremarkable Head: Yes normal to inspection Neck Neck: Yes normal visual inspection Chest Chest palpation & inspection: normal inspection of the chest Resp Auscultation: clear to auscultation bilaterally Cardio Palpation: normal PMI Heart sounds: S1 normal heart sound present, S2 normal heart sound present, no gallops, no murmurs and no rubs GI Palpation (GI): Soft to palpation Back/Spine/Pelvis Other: unremarkable Skin General skin exam: no rashes or lesions noted Neuro General: patient oriented x3 Extrem General: Yes normal to inspection Psych Mental Status: mental status grossly normal Office Procedures EKG Details: EKG with atrial fibrillation at a rate of 73/Min; nonspecific ST-T changes. [id number], Complete Assessment & Plan Assessment & Plan (1) Persistent atrial fibrillation: Code(s): I48.19 - Other persistent atrial fibrillation Category: Medical (2) CKD (chronic kidney disease): Code(s): N18.9 - Chronic kidney disease, unspecified Category: Medical Plan Cardiac studies reviewed. Echocardiogram with LVEF of 60-65%; no significant valvular issues. Moderate biatrial enlargement. Holter monitor shows underlying atrial fibrillation with an average rate of 67/Min. Rare PVCs. Overall, adequate rate control. Stress test done in [place] in 2014 reported to have normal perfusion. Overall, stable cardiac status without any symptoms. He can continue digoxin without changes. He can continue Eliquis. Recently, creatinine was slightly elevated and hence needs to be rechecked with repeat digoxin levels. We discussed about this today. Follow up in one year and they will call with any interim concerns. Discussed with granddaughter. Discussion Notes During the visit, we discussed the management of atrial fibrillation, emphasizing the importance of medication adherence and regular monitoring of EKG and digoxin levels. Patient was informed and verbally consented to the use of an ambient scribe for clinic note documentation during this visit. Orders: Orders Digoxin Today I48.91 - Unspecified atrial fibrillation Basic Metabolic Panel Today I48.91 - Unspecified atrial fibrillation Patient Instructions: - Continue taking prescribed medications, including digoxin and anticoagulants, as directed. - Get lab work done. - Monitor for any new or worsening symptoms and report them to your healthcare provider. Coding Level of Care Code Est Pt Level 4 (56293) Diagnoses Persistent atrial fibrillation I48.19 CKD (chronic kidney disease) N18.9 CPT Codes EKG - CPT: 44120-[id number], Complete ([id number])
[2024-12-15 10:30] VITALS: BP 120/72; PULSE 73; BMI 32.0
--- OUTSIDE RECORDS SUMMARY | 2024-12-15 12:33 | XMS_ITS | Clinical Summary ---
Author Organization [facility] Address [address] [place] [address] Care Team Providers Care Elementary School Professional Name Role Phone Darleen Weaver MD Primary Care Provider [phone] Allergies No known active allergies Medications Medication [...] age to complete this topic Care Teams Elementary School Professional Relationship Specialty Start Date End Date Darleen Weaver MD [address] [place] [address] PCP - General Pharmacy Technician Infusion 10/08/19
--- OUTSIDE RECORDS SUMMARY | 2024-12-15 12:33 | XMS_ITS | Clinical Summary ---
Author Organization [facility] Address [address] [facility] [address] [place] [address] Phone Care Team Providers Care Corporate Strategist Name Role Phone Darleen Weaver MD Primary Care Provider [phone] Allergies No known active allergies Medications atorvastatin [...] topic Medical Devices Not on file Insurance [facility] PREF [facility] MEDICARE REPLACEMENT MEDICARE PART A & B MEDICARE PART A & B [facility] VALUE MEDICARE REPLACEMENT MEDICARE PART A & B MEDICARE PART A & [place] [address] [place] [address] VALUE MEDICARE REPLACEMENT MEDICARE PART A & B [facility] PREF [facility] MEDICARE REPLACEMENT MEDICARE PART A & B Care Teams Corporate Strategist Relationship Specialty Start Date End Date Darleen Weaver MD [facility] [address] PCP - General Internal Medicine 11/03/22 Additional Source Comments The information contained in this document represents components of the legal health record. It is not the complete legal health record.[facility]
== END 2024-12-15 10:55 | disposition home or self-care (01) ==
LOC: HO.HCS 10:20
PROVIDERS: PCP Internal Medicine; Visit Provider Internal Medicine
DX: I48.19 Other persistent atrial fibrillation (principal); N18.9 Chronic kidney disease, unspecified
CPT/HCPCS: 93010; 99214

== ENCOUNTER → 2024-12-15 10:19 | Outpatient (BNVA) | payer MEDICARE, SELFPAY | PROVIDERS: PCP Internal Medicine; Visit Provider Internal Medicine | DX: I48.19 Other persistent atrial fibrillation (principal); N18.9 Chronic kidney disease, unspecified; Z79.01 Long term (current) use of anticoagulants; R94.31 Abnormal electrocardiogram [ECG] [EKG] | CPT/HCPCS: 93005; 99212 ==

== ENCOUNTER 2024-12-21 09:24 | Outpatient (REF) | payer MEDICARE, SELFPAY ==
--- OUTSIDE RECORDS SUMMARY | 2024-12-21 10:09 | XMS_ITS | Clinical Summary ---
Author Organization [facility] Address [address] [place] [address] Care Team Providers Care Assembler Fishing Floats Name Role Phone Darleen Weaver MD Primary Care Provider [phone] Allergies No known active allergies Medications Medication [...] age to complete this topic Care Teams Assembler Fishing Floats Relationship Specialty Start Date End Date Darleen Weaver MD [address] [place] [address] PCP - General Senior Quality Methods Specialist 10/08/19
--- OUTSIDE RECORDS SUMMARY | 2024-12-21 10:09 | XMS_ITS | Clinical Summary ---
Author Organization [facility] Address [address] [place] [address] Phone Care Team Providers Care Divisional Merchandising Manager Name Role Phone Darleen Weaver MD Primary Care Provider [phone] Allergies No known active allergies Medications atorvastatin [...] Devices Not on file Insurance [facility] MEDICARE REPLACEMENT MEDICARE PART A & B MEDICARE PART A & B [facility] VALUE MEDICARE REPLACEMENT MEDICARE PART A & B MEDICARE PART A & [place] [address] [place] [address] VALUE MEDICARE REPLACEMENT MEDICARE PART A & B [facility] MEDICARE REPLACEMENT MEDICARE PART A & B Care Teams Divisional Merchandising Manager Relationship Specialty Start Date End Date Darleen Weaver MD [facility] [place] [address] PCP - General Internal Medicine 11/03/22 Additional Source Comments The information contained in this document represents components of the legal health record. It is not the complete legal health record.[facility]
[2024-12-21 10:58] LABS: Digoxin 0.5 ng/mL (0.8-2.0)
[2024-12-21 11:01] LABS: Anion Gap 11 (12-20); Blood Urea Nitrogen 23 mg/dL (9-16); Calcium 9.3 mg/dL (8.4-10.2); Carbon Dioxide 24 mmol/L (22-29); Chloride 114 mmol/L (96-108); Estimated Glomerular Filt Rate > 60; Potassium 4.3 mmol/L (3.3-5.1); Sodium 145 mmol/L (135-145)
== END 2024-12-21 09:25 | disposition home or self-care (01) ==
LOC: HO.HMGCLDS 09:24
PROVIDERS: PCP Internal Medicine; Visit Provider Internal Medicine
DX: I48.91 Unspecified atrial fibrillation (principal)
CPT/HCPCS: 36415; 80048; 80162

== ENCOUNTER 2025-03-08 15:05 | Outpatient (AMB) | payer MEDICARE, SELFPAY ==
--- NOTE | 2025-03-08 15:21 | A.OFFVIS_ITS ---
Intake Visit Reasons: Kidney Stones (set(UA) Intake Note: New patient presents today for initial visit for kidney stones Urology Medication:Tamsulosin Blood Thinner:Apixaban Antibiotic Allergies:None Allergies No Known Allergies Allergy (Verified 03/08/25 15:25) Medication List - Last Reconciled 03/08/25 by Yajaira Cordova MD apixaban (Eliquis) 5 mg PO BID atorvastatin 20 mg PO DAILY digoxin 125 mcg PO DAILY finasteride (Proscar) 5 mg PO DAILY polyethylene glycol 3350 (Miralax) 17 grams PO BID tamsulosin 0.4 mg PO BEDTIME HPI Comments Details: History of Present Illness The patient is an 84 year old male presenting as a new patient for evaluation of urinary issues. He reports nocturia occurring three to five times per night and urinary frequency every two to three hours during the day. He also experiences a slow urinary stream and an inability to hold his urine. His primary care provider suspected a kidney-related issue and he was referred for further evaluation. A renal and bladder ultrasound on 12/08/24 revealed bilateral renal cysts and an enlarged prostate. The ultrasound also identified a 1.2 cm nonobstructive calculus in the lower pole of the right kidney and a 1.1 cm nonobstructing calculus in the left kidney. No medications have been prescribed for the prostate previously. The patient has a history of atrial fibrillation and is on a blood thinner, Eliquis. This was prescribed approximately 10 years ago following an episode of severe lightheadedness and dizziness. Results - Renal Bladder Ultrasound (12/08/2024): Findings include bilateral renal stones and bilateral renal cysts. - Right Kidney: 1.2 cm non-obstructive lower pole calculus. - Left Kidney: 1.1 cm non-obstructing renal calculus. - Prostate: Enlarged. [facility] Medical History Hematuria Nephrolithiasis Anemia Annual physical exam Carpal tunnel syndrome of right wrist Degenerative joint disease (DJD) of lumbar spine Hyperlipidemia Atrial fibrillation Surgical History No pertinent past surgical history Family History Father No problems noted. Mother No problems noted. Social History Housing: House Alcohol intake: never Patient Tobacco Use Status: Never used Tobacco e-Cigarette/Vaping Use: Never Used service: No Current occupational status: retired Current occupation: rt hand Cognitive needs: No Hearing needs: No Vision needs: No Review of Systems Const All systems reviewed & are unremarkable except as noted in HPI and below Reports no additional complaints Eyes Reports no additional complaints ENT Reports no additional complaints Card Reports no additional complaints Resp Reports no additional complaints GI Reports no additional complaints Reports as per HPI Musc Reports no additional complaints Skin/Breast Reports system reviewed and no additional complaints, except as documented Neuro Reports no additional complaints Psych Reports no additional complaints Endo Reports no additional complaints Fredi/Lymph Reports no additional complaints Aller/Immun Reports no additional complaints Physical Exam Const General: healthy appearing, no acute distress and well developed Orientation/consciousness: patient oriented x3 HEENT Head: Yes normocephalic and Yes atraumatic Eyes Conjunctivae: conjunctivae normal Neck Neck: Yes normal visual inspection Chest Chest palpation & inspection: normal inspection of the chest Resp Effort & Inspection: normal respiratory effort GI Inspection: Yes normal to inspection Neuro General: patient oriented x3 Psych Appearance: grossly normal Affect: normal affect Results AMB Urinalysis, Automated UA Leukoctes 0 Dania/uL Last Edit by Val Alba on 03/08/25 17:31 UA Nitrite Negative Last Edit by Val Alba on 03/08/25 17:31 UA Urobilinogen 0.2 mg/dL Last Edit by Val Alba on 03/08/25 17:31 UA Protein 15 mg/dL Last Edit by Val Alba on 03/08/25 17:31 UA pH 5.5 Last Edit by Val Alba on 03/08/25 17:31 UA Blood 25 Vinny/uL Last Edit by Val Alba on 03/08/25 17:31 UA Specific [place] 1.020 Last Edit by Val Alba on 03/08/25 17:31 UA Ketone Negative Last Edit by Val Alba on 03/08/25 17:31 UA Bilirubin 0 mg/dL Last Edit by Val Alba on 03/08/25 17:31 UA Glucose 0 mg/dL Last Edit by Val Alba on 03/08/25 17:31 Assessment & Plan Assessment & Plan Plan Plan 1. Benign Prostatic Hyperplasia With Lower Urinary Tract Symptoms - The patient's urinary symptoms are likely due to an enlarged prostate, which is common with age. - Tamsulosin will be prescribed to be taken in the evening to relax the muscles around the prostate. - Finasteride (Proscar) will be prescribed to be taken in the morning to help shrink the prostate. - Prescriptions will be sent to the [facility] on [address]. - A follow-up visit is scheduled in 10-12 weeks to assess the treatment res ponse. 2. Bilateral Nephrolithiasis - The renal stones are currently non-obstructing and are not considered to be contributing to the patient's urinary symptoms. - A CT scan of the abdomen will be ordered for a more detailed evaluation of the stones. - Potential procedures to break up the stones will be discussed at the follow-up visit after reviewing the CT scan. 3. Bilateral Renal Cysts - A CT scan of the abdomen will be ordered to further evaluate the renal cysts seen on the ultrasound. - The results of the CT scan will be reviewed at the follow-up appointment in 10-12 weeks. Orders: Orders AMB Urinalysis Automated Today N20.0 - Calculus of kidney Medications: New tamsulosin 0.4 mg PO BEDTIME 90 caps 2RF finasteride (Proscar) 5 mg PO DAILY 90 tabs 3RF Coding
--- OUTSIDE RECORDS SUMMARY | 2025-03-08 21:41 | XMS_ITS | Clinical Summary ---
Author Organization [facility] Address [address] [facility] [address] [place] [address] Phone Care Team Providers Care Pharmaceutical Specialty Representative Name Role Phone Darleen Weaver MD Primary Care Provider [phone] Allergies No known active allergies Medications atorvastatin [...] topic Medical Devices Not on file Insurance [facility] MEDICARE REPLACEMENT MEDICARE PART A & B MEDICARE PART A & B [facility] VALUE MEDICARE REPLACEMENT MEDICARE PART A & B MEDICARE PART A & [place] [address] [address] VALUE MEDICARE REPLACEMENT MEDICARE PART A & B [facility] MEDICARE REPLACEMENT MEDICARE PART A & B Care Teams Pharmaceutical Specialty Representative Relationship Specialty Start Date End Date Darleen Weaver MD [address] [place] [address] PCP - General Internal Medicine 11/03/22 Additional Source Comments The information contained in this document represents components of the legal health record. It is not the complete legal health record.[facility]
--- OUTSIDE RECORDS SUMMARY | 2025-03-08 21:41 | XMS_ITS | Clinical Summary ---
Author Organization [facility] Prior to 08/22/24 Address [address] [place] [address] Care Team Providers Care Lining Brusher Name Role Phone Darleen Weaver MD Primary Care Provider [phone] Allergies No known active allergies Medications Medication [...] age to complete this topic Care Teams Lining Brusher Relationship Specialty Start Date End Date Darleen Weaver MD [address] [place] [address] PCP - General Securities Attorney 10/08/19
== END 2025-03-08 16:22 | disposition home or self-care (01) ==
LOC: HO.HUSH 15:06
PROVIDERS: PCP Internal Medicine; Visit Provider Urology
DX: N20.0 Calculus of kidney (principal)